=== PATIENT | female | born 1970 | race Caucasian/White ===

== ENCOUNTER 2019-06-19 18:05 | Emergency (ER) | payer OTHER, MEDICAID, SELFPAY ==
[2019-06-19 18:14] VITALS: BP 182/99; PULSE 102; RESP 26; O2SAT 99; BMI 21.7
--- NOTE | 2019-06-19 18:16 | DI.RAD.S_ITS ---
PROCEDURE: XR CHEST 1V INDICATIONS: chest pain TECHNIQUE: One view of the chest was acquired. COMPARISON: [facility], , CHEST 2 VIEW, 03/08/2010, 14:41. FINDINGS: Surgical changes and devices: None. Lungs and pleura: Lungs are clear. No pleural effusions or pneumothorax. Mediastinum: Mediastinal contours appear normal. Heart size is normal. Bones and chest wall: No suspicious bony lesions. Overlying soft tissues appear unremarkable. IMPRESSION: No acute cardiopulmonary hepatology. Dictated by: Jose Onofre M.D. on 06/19/2019 at 18:41 Approved by: Jose Onofre M.D. on 06/19/2019 at 18:42
[2019-06-19 18:34] LABS: Add Manual Diff / Slide Review NO; Basophils Absolute Auto 0 /uL (0-100); Basophils Percent Auto 0.4 % (0-2); Eosinophils Absolute Auto 100 /uL (0-450); Eosinophils Percent Auto 0.8 % (2-4); Hematocrit 38.3 % (36-46); Hemoglobin 12.4 g/dL (12.0-16.0); Lymphocytes Absolute Auto 2500 /uL (1100-4500); Lymphocytes Percent Auto 29.1 % (25-40); Mean Corpuscular HGB Conc 32.5 % (30-36); Mean Corpuscular Hemoglobin 26.3 PG (26-34); Monocytes Absolute Auto 500 /uL (0-900); Monocytes Percent Auto 6.4 % (3-14); Neutrophils Absolute Auto 5400 /uL (1500-7000); Neutrophils Percent Auto 63.3 % (50-75); Platelet Count 362 X10^3/uL (150-400); Red Blood Cell Count 4.72 X10^6/uL (4.0-5.2); Red Cell Distribution Width 14.3 % (11.6-14.8); White Blood Cell Count 8.5 X10^3/uL (4.5-11.0)
[2019-06-19 18:40] LABS: Alanine Aminotransferase 17 IU/L (<35); Albumin 4.7 g/dL (3.5-5.0); Albumin Globulin Ratio 1.5 (1.0-2.8); Alkaline Phosphatase 90 U/L (38-126); Aspartate Aminotransferase 21 IU/L (14-36); BUN Creatinine Ratio 21.7 (6-22); Bilirubin Total 0.3 mg/dL (0.2-1.3); Blood Urea Nitrogen 13 mg/dL (7-17); Calcium 9.9 mg/dL (8.4-10.2); Carbon Dioxide 28 mmol/L (22-32); Chloride 99 mmol/L (98-107); Creatine Kinase 82 U/L (30-135); Estimated Glomerular Filt Rate > 60.0 mL/min (>60); Globulin 3.2 g/dL (1.7-4.1); Glucose 106 mg/dL (70-100); HEMOLYSIS < 15 (0-50); Lipase 123 U/L (23-300); Potassium 3.4 mmol/L (3.4-5.1); Sodium 138 mmol/L (137-145); Total Protein 7.9 g/dL (6.3-8.2)
--- NOTE | 2019-06-19 18:45 | ED.CHESTPAIN ---
HPI - Chest Pain General Chief Complaint: Chest Pain Stated Complaint: CHEST PAIN Time Seen by Provider: 06/19/19 18:13 Source: patient Mode of arrival: Ambulatory Limitations: no limitations History of Present Illness HPI narrative: 48-year-old female here for evaluation of left-sided chest pain radiating down her left arm. States that it started approximately 1 hour prior to arrival here in the ER. Time my evaluation she was symptom-free. She did take an aspirin prior to arrival. She described as a sharp pain. Not worse with palpation or movement or breathing. Has never had anything like this in the past. She states she was anxious at the time. Related Data Home Medications Medication Instructions Recorded Confirmed alprazolam [Xanax] 1 mg PO PRN #0 10/11/11 clonazepam 2 mg PO TID #0 10/11/11 fluticasone propionate [Flovent 1 puff INH BID #12 gm 10/11/11 HFA] sertraline 75 mg PO QDAY #0 10/11/11 PRAZOSIN HYDROCHLORIDE (PRAZOSIN 2 mg PO HS #0 09/18/12 HCL) Previous Rx's Medication Instructions Recorded pantoprazole [Protonix] 40 mg PO QDAY #30 12/10/12 tobramycin-dexamethasone [TobraDex] 1 drp OPHTH Q4HWA #5 ml 03/12/17 lorazepam [Ativan] 1 mg PO BID PRN #10 tab 06/19/19 meloxicam [Mobic] 15 mg PO DAILY #60 tab 06/19/19 pantoprazole [Protonix] 40 mg PO DAILY #60 tab 06/19/19 Allergies Allergy/AdvReac Type Severity Reaction Status Date / Time codeine [CODEINE] Allergy Mild Verified 06/19/19 18:14 hydrocodone [HYDROCODONE] Allergy Mild RASH Verified 06/19/19 18:14 metoclopramide Allergy Mild Verified 06/19/19 18:14 [METOCLOPRAMIDE] morphine [MORPHINE] Allergy Mild Verified 06/19/19 18:14 Review of Systems Constitutional Constitutional: Denies fever(s) Cardiovascular Cardiovascular: Reports chest pain and Denies dyspnea Respiratory Respiratory: Denies dyspnea Gastrointestinal Gastrointestinal: Denies abdominal pain, Denies nausea and Denies vomiting Genitourinary Genitourinary: Denies dysuria and Denies vaginal discharge Musculoskeletal Musculoskeletal: Denies myalgias and Denies arthralgias Integumentary/Breasts Skin/Breast: Denies lesions and Denies rash Neurologic Neurologic: Denies behavioral changes Psychiatric Psychiatric: Reports anxiety and Denies behavioral changes Hematologic/Lymphatic Hematologic/Lymphatic: Denies easy bleeding and Denies easy bruising Patient History Medical History Anxiety (Acute) PTSD (post-traumatic stress disorder) (Acute) SVT (supraventricular tachycardia) (Inactive) Social History Smoking Status: Unknown if ever smoked Smoking Status: Unknown if ever smoked alcohol intake frequency: holidays/special occasions only Substance Use Type: does not use Exam Initial Vital Signs Initial Vital Signs: Vital Signs Pulse Rate 102 H 06/19/19 18:14 Respiratory Rate 26 H 06/19/19 18:14 Blood Pressure 182/99 H 06/19/19 18:14 Pulse Oximetry 99 06/19/19 18:14 Const General: cooperative, comfortable and well developed Orientation: alert, awake and oriented x3 HENMT Head: normal to inspection and normocephalic Resp Effort & Inspection: normal respiratory effort Auscultation: clear to auscultation bilaterally Cardio Rate: tachycardic Rhythm: regular rhythm Pulses: radial pulses present GI Inspection: non-distended Palpation: No firm and No tender Skin Lesions: no lesions Rashes: no rashes Neuro General: alert, awake and oriented x3 Cognition: normal cognition Speech: speech normal Motor: muscle tone normal throughout Sensory Exam: no sensory deficits noted Extrem General: normal to inspection and capillary refill normal Psych Appearance: grossly normal and well kempt Scores GCS Sp coma scale eye opening: Spontaneous Sp coma scale verbal response: [place] coma scale motor response: [place] coma scale total score: 15 HEART Score Heart Score history: Slightly Suspicious Heart Score EKG: Normal Heart Score Age: 45-64 years old Heart Score risk factors: No known risk factors Heart Score troponin: < or = to normal limit Heart Score Total: 1 PERC Score Age greater than or equal to 50 years: Yes Heart rate greater than or equal to 100 bpm: Yes Room Air O2 Sat less than 95%: No Unilateral leg swelling: No Recent trauma or surgery: No Hemoptysis: No Prior PE or DVT: No Hormone Use: No Total PERC Score: 2 Course Orders Ordered: ED Orders 06/19/19 18:12 B Type Natriuretic Peptide Stat Complete Blood Count AUTO DIFF Stat Comprehensive Metabolic Panel Stat D Dimer Stat Lipase Stat Partial Thromboplastin Time Stat Prothrombin Time INR Stat Troponin & CK Cardiac Panel Stat 06/19/19 18:15 EKG-12 Lead Stat 06/19/19 18:16 XR chest 1V Stat 06/19/19 20:30 Troponin I Stat Vital Signs Vital signs: Vital Signs - 8 hr 06/19/19 18:47 06/19/19 19:35 06/19/19 20:09 Pulse Rate 101 H 96 H 107 H Respiratory Rate 19 26 H 33 H Blood Pressure [Left Arm] 143/98 H 121/89 125/84 Pulse Oximetry 98 97 99 06/19/19 21:12 Pulse Rate 89 Respiratory Rate 17 Blood Pressure [Left Arm] 115/71 Pulse Oximetry 96 MDM - Chest Pain Lab Data Attestation: I reviewed the patient's lab results. Result diagrams: 06/19/19 18:12 06/19/19 18:12 Labs: Lab Results 06/19/19 06/19/19 06/19/19 Range/Units 18:12 18:12 18:12 WBC 8.5 (4.5-11.0) X10^3/uL RBC 4.72 (4.0-5.2) X10^6/uL Hgb 12.4 (12.0-16.0) g/dL Hct 38.3 (36-46) % MCV 81.0 (80-100) fL MCH 26.3 (26-34) PG MCHC 32.5 (30-36) % RDW 14.3 (11.6-14.8) % Plt Count 362 (150-400) X10^3/uL Neut % (Auto) 63.3 (50-75) % Lymph % (Auto) 29.1 (25-40) % [place] % (Auto) 6.4 (3-14) % Eos % (Auto) 0.8 L (2-4) % Baso % (Auto) 0.4 (0-2) % Neut # (Auto) 5400 (1893-2054) /uL Lymph # (Auto) 2500 (1437-8600) /uL [place] # (Auto) 500 (0-900) /uL Eos # (Auto) 100 (0-450) /uL Baso # (Auto) 0 (0-100) /uL PT 10.5 (10.1-12.7) SECONDS INR 0.9 (0.9-1.3) APTT 31 (26.4-36.2) SECONDS D-Dimer (<230) ng/mL Sodium 138 (137-145) mmol/L Potassium 3.4 (3.4-5.1) mmol/L Chloride 99 (98-107) mmol/L Carbon Dioxide 28 (22-32) mmol/L BUN 13 (7-17) mg/dL Creatinine 0.60 (0.52-1.04) mg/dL Estimated GFR > 60.0 (>60) mL/min BUN/Creatinine Ratio 21.7 (6-22) Glucose 106 H (70-100) mg/dL Calcium 9.9 (8.4-10.2) mg/dL Total Bilirubin 0.3 (0.2-1.3) mg/dL AST 21 (14-36) IU/L ALT 17 (<35) IU/L Alkaline Phosphatase 90 (38-126) U/L Total Creatine Kinase 82 (30-135) U/L CK-MB (CK-2) TNP CK-MB (CK-2) Rel Index TNP Troponin I < 0.012 (0.01-0.034) ng/mL B-Natriuretic Peptide (<100) Total Protein 7.9 (6.3-8.2) g/dL Albumin 4.7 (3.5-5.0) g/dL Globulin 3.2 (1.7-4.1) g/dL Albumin/Globulin Ratio 1.5 (1.0-2.8) Lipase 123 (23-300) U/L 06/19/19 06/19/19 06/19/19 Range/Units 18:12 18:12 20:30 WBC (4.5-11.0) X10^3/uL RBC (4.0-5.2) X10^6/uL Hgb (12.0-16.0) g/dL Hct (36-46) % MCV (80-100) fL MCH (26-34) PG MCHC (30-36) % RDW (11.6-14.8) % Plt Count (150-400) X10^3/uL Neut % (Auto) (50-75) % Lymph % (Auto) (25-40) % [place] % (Auto) (3-14) % Eos % (Auto) (2-4) % Baso % (Auto) (0-2) % Neut # (Auto) (5881-4535) /uL Lymph # (Auto) (2094-6968) /uL [place] # (Auto) (0-900) /uL Eos # (Auto) (0-450) /uL Baso # (Auto) (0-100) /uL PT (10.1-12.7) SECONDS INR (0.9-1.3) APTT (26.4-36.2) SECONDS D-Dimer 143 (<230) ng/mL Sodium (137-145) mmol/L Potassium (3.4-5.1) mmol/L Chloride (98-107) mmol/L Carbon Dioxide (22-32) mmol/L BUN (7-17) mg/dL Creatinine (0.52-1.04) mg/dL Estimated GFR (>60) mL/min BUN/Creatinine Ratio (6-22) Glucose (70-100) mg/dL Calcium (8.4-10.2) mg/dL Total Bilirubin (0.2-1.3) mg/dL AST (14-36) IU/L ALT (<35) IU/L Alkaline Phosphatase (38-126) U/L Total Creatine Kinase (30-135) U/L CK-MB (CK-2) CK-MB (CK-2) Rel Index Troponin I < 0.012 (0.01-0.034) ng/mL B-Natriuretic Peptide < 100 (<100) Total Protein (6.3-8.2) g/dL Albumin (3.5-5.0) g/dL Globulin (1.7-4.1) g/dL Albumin/Globulin Ratio (1.0-2.8) Lipase (23-300) U/L Imaging Data Chest x-ray: Radiologist's impression: [address] [address] XRay Report Signed Patient: Moni Payne [facility]#: [id number] : 1970Acct:[id number] Age/Sex: 48 / FDate of Service: 06/19/19 Loc: ED Accession Number: [id number] Procedure: XR chest 1V Ordering Provider: Olayinka Alvarez D.O. PROCEDURE: XR CHEST 1V INDICATIONS: chest pain TECHNIQUE: One view of the chest was acquired. COMPARISON: [facility], CHEST 2 VIEW, 03/08/2010, 14:41. FINDINGS: Surgical changes and devices: None. Lungs and pleura: Lungs are clear. No pleural effusions or pneumothorax. Mediastinum: Mediastinal contours appear normal. Heart size is normal. Bones and chest wall: No suspicious bony lesions. Overlying soft tissues appear unremarkable. IMPRESSION: No acute cardiopulmonary hepatology. Dictated by: Jose Onofre M.D. on 06/19/2019 at 18:41 Approved by: Jose Onofre M.D. on 06/19/2019 at 18:42 ECG Data Attestation: I personally reviewed and interpreted this ECG as follows: Prior ECG tracings: not available for review Interpretation: Sinus rhythm Normal axis Normal QRS Normal QTC No ST T wave changes MDM Narrative Medical decision making narrative: Positive PERC but D-dimer is negative. EKG is unremarkable. Low risk heart score. Troponin is negative x2. Chest x-ray shows no signs of pneumonia. I do have a very strong suspicion that her symptoms were related to anxiety. She does states she was anxious at the time. She has a prior history of anxiety. She states she is not on any anxiety medication. Will hold on further workup for now. Will refill some of her medications however she was told that the rest for medications need to come from her primary provider. We did discuss return precautions and follow-up instructions. She expressed understanding and agreement plan. Discharge Plan Departure Patient Disposition: Home Clinical Impression: Atypical chest pain Discharge Date/Time: 06/19/19 21:33 Instructions: DI for Atypical Chest Pain Activity Restrictions/Additional Instructions: I recommend that you contact the health human resource officer here at the hospital at [phone] to help you establish a primary provider. Take the medications as directed. Return to the emergency department for any new or worsening symptoms Prescriptions: New meloxicam [Mobic] 15 mg tablet 15 mg PO DAILY Qty: 60 RF: 0 pantoprazole [Protonix] 40 mg tablet,delayed release (DR/EC) 40 mg PO DAILY Qty: 60 RF: 0 lorazepam [Ativan] 1 mg tablet 1 mg PO BID PRN (Reason: anxiety) Qty: 10 RF: 0 No Action alprazolam [Xanax] 1 MG tablet 1 mg PO PRN Qty: 0 RF: 0 sertraline 50 MG tablet 75 mg PO QDAY Qty: 0 RF: 0 fluticasone propionate [Flovent HFA] 12 GM HFA aerosol inhaler 1 puff INH BID Qty: 12 RF: 0 clonazepam 2 MG tablet 2 mg PO TID Qty: 0 RF: 0 PRAZOSIN HYDROCHLORIDE (PRAZOSIN HCL) 2 mg PO HS Qty: 0 RF: 0 pantoprazole [Protonix] 40 MG tablet,delayed release (DR/EC) 40 mg PO QDAY Qty: 30 RF: 11 tobramycin-dexamethasone [TobraDex] 5 ML drops,suspension 1 drp OPHTH Q4HWA Qty: 5 RF: 0
[2019-06-19 18:47] VITALS: BP 143/98; PULSE 101; RESP 19; O2SAT 98
[2019-06-19 18:51] LABS: Troponin I < 0.012 ng/mL (0.01-0.034)
[2019-06-19 18:56] LABS: INR 0.9 (0.9-1.3); PTT Partial Thromboplastin Tim 31 SECONDS (26.4-36.2); Prothrombin Time 10.5 SECONDS (10.1-12.7)
[2019-06-19 18:57] LABS: D Dimer 143 ng/mL (<230)
[2019-06-19 19:07] LABS: B Type Natriuretic Peptide < 100 (<100)
[2019-06-19 19:35] VITALS: BP 121/89; PULSE 96; RESP 26; O2SAT 97
[2019-06-19 20:09] VITALS: BP 125/84; PULSE 107; RESP 33; O2SAT 99
[2019-06-19 20:57] LABS: Troponin I < 0.012 ng/mL (0.01-0.034)
[2019-06-19 21:12] VITALS: BP 115/71; PULSE 89; RESP 17; O2SAT 96
== END 2019-06-19 21:33 | disposition home or self-care (01) ==
PROVIDERS: Emergency Provider Emergency Medicine
DX: R07.89 Other chest pain (principal)
CPT/HCPCS: 36415; 71045; 80053; 82550; 83690; 83880; 84484; 85025; 85379; 85610; 85730; 93005; 93010; 99284; 99285

== ENCOUNTER 2019-08-04 18:01 | Emergency (ER) | payer OTHER, MEDICAID, SELFPAY ==
[2019-08-04 18:03] VITALS: BP 180/105; PULSE 91; RESP 18; TEMP 36.9; O2SAT 100; BMI 23.1
[2019-08-04 18:13] VITALS: BP 158/107
--- NOTE | 2019-08-04 18:47 | ED.HA ---
HPI - Headache General Chief Complaint: Headache Stated Complaint: headache, neck pain, vomiting Time Seen by Provider: 08/04/19 18:39 Source: patient Mode of arrival: Ambulatory Limitations: no limitations History of Present Illness HPI Narrative: Patient is a 48-year-old female with a history of epilepsy also with cervical degenerative disc disease here for evaluation of right-sided posterior neck pain and is causing her headache. No fevers. No trauma. She states she is feeling ?clicking? in her neck. She does have a primary provider however does not have an appointment until next month. Here for symptom control Related Data Previous Rx's Medication Instructions Recorded ondansetron 4 mg disintegrating 4 mg PO BID PRN #14 tab 07/15/19 tablet cyclobenzaprine 10 mg PO TID PRN #14 tab 08/04/19 lidocaine 1 patch TOP DAILY #1 each 08/04/19 Allergies Allergy/AdvReac Type Severity Reaction Status Date / Time codeine [CODEINE] Allergy Mild Verified 08/04/19 18:10 hydrocodone [HYDROCODONE] Allergy Mild RASH Verified 08/04/19 18:10 metoclopramide Allergy Mild Verified 08/04/19 18:10 [METOCLOPRAMIDE] morphine [MORPHINE] Allergy Mild Verified 08/04/19 18:10 Review of Systems Constitutional Constitutional: Denies fever(s), Reports headache(s) and Denies weakness ENT Ears, Nose, Mouth, and Throat: Denies vertigo, Denies dizziness, Reports headache(s), Reports neck pain and Denies disequilibrium Cardiovascular Cardiovascular: Denies chest pain and Denies dyspnea Respiratory Respiratory: Denies dyspnea Gastrointestinal Gastrointestinal: Denies abdominal pain Musculoskeletal Musculoskeletal: Reports neck pain Integumentary/Breasts Skin/Breast: Denies lesions and Denies rash Neurologic Neurologic: Denies behavioral changes, Denies confusion, Denies vertigo, Denies dizziness, Reports headache(s), Denies tremor(s), Denies disequilibrium and Denies weakness Psychiatric Psychiatric: Denies behavioral changes and Denies confusion Hematologic/Lymphatic Hematologic/Lymphatic: Denies easy bleeding and Denies easy bruising Patient History Medical History Anxiety (Acute) PTSD (post-traumatic stress disorder) (Acute) SVT (supraventricular tachycardia) (Inactive) Social History Smoking Status: Never smoker Smoking Status: Never smoker alcohol intake frequency: holidays/special occasions only Substance Use Type: does not use Exam Initial Vital Signs Initial Vital Signs: Vital Signs Temperature 98.5 F 08/04/19 18:03 Pulse Rate 91 H 08/04/19 18:03 Respiratory Rate 18 08/04/19 18:03 Blood Pressure 180/105 H 08/04/19 18:03 Pulse Oximetry 100 08/04/19 18:03 Const General: cooperative, comfortable and well developed Limitations: mental status not altered HENMT Head: normal to inspection and normocephalic Back/Spine/Pelvis Cervical Spine: cervical spasm, No cervical spinal tenderness and No step off deformity Skin Lesions: no lesions Rashes: no rashes Neuro General: alert, awake and oriented x3 Cranial Nerves: CN's II-XI intact bilaterally Cognition: normal cognition Speech: speech normal Gait: normal gait Extrem General: normal to inspection and capillary refill normal Course Orders Ordered: Discontinued Medications Lidocaine HCl (Xylocaine 1% (Pf)) 2 ml INJ NOW ONE Stop: 08/04/19 18:48 Last Admin: 08/04/19 19:58 Dose: 2 ml Documented by: MUMTAZ Ondansetron HCl (Zofran Odt) 4 mg PO NOW ONE Stop: 08/04/19 19:52 Last Admin: 08/04/19 19:57 Dose: 4 mg Documented by: MUMTAZ Vital Signs Vital signs: Vital Signs - 8 hr 08/04/19 18:03 08/04/19 18:13 08/04/19 20:00 Temperature 98.5 F Pulse Rate 91 H 90 Respiratory Rate 18 16 Blood Pressure 180/105 H Blood Pressure [Left Arm] 158/107 H Pulse Oximetry 100 98 MDM - Headache MDM Narrative Medical decision making narrative: Do suspect this is muscle spasm. She does have pinpoint tenderness the right paraspinal region. A trigger point injection was done with 2 mL of 1% lidocaine without epinephrine. Also sent home with symptom control. Feel we can hold on head CT. Low suspicion for meningitis. Low suspicion for subarachnoid hemorrhage. Patient was given return precautions and follow-up instructions. She expressed understanding agreement plan. Discharge Plan Departure Patient Disposition: Home Clinical Impression: Cervical muscle pain Discharge Date/Time: 08/04/19 20:05 Instructions: DI for Cervical Muscle Strain Activity Restrictions/Additional Instructions: Take the medications as directed. Unfortunately tramadol/Ultram should not be given in individuals with a history of epilepsy. This does limit however options as far as pain control given your allergies. I do recommend you may contact with your primary provider. Return to the emergency department for any new or worsening symptoms. Your prescriptions were electronically transmitted to the [facility] here in [place]. Prescriptions: New lidocaine 5 % adhesive patch,medicated 1 patch TOP DAILY Qty: 1 RF: 0 cyclobenzaprine 10 mg tablet 10 mg PO TID PRN (Reason: muscle spasm) Qty: 14 RF: 0 No Action ondansetron 4 mg tablet,disintegrating 4 mg PO BID PRN (Reason: nausea and vomiting) Qty: 14 RF: 0
[2019-08-04] MEDS: ONDANSETRON 4 MG ODT PO (19:57)
[2019-08-04] MEDS: LIDOCAINE 1% (PF) 2 ML INJ (19:58)
[2019-08-04 20:00] VITALS: PULSE 90; RESP 16; O2SAT 98
== END 2019-08-04 20:05 | disposition home or self-care (01) ==
PROVIDERS: Emergency Provider Emergency Medicine
DX: M54.2 Cervicalgia (principal)
CPT/HCPCS: 99283

== ENCOUNTER 2019-08-05 04:15 | Emergency (ER) | payer OTHER, MEDICAID, SELFPAY ==
[2019-08-05 04:15] VITALS: BP 138/94; PULSE 89; RESP 17; O2SAT 100; BMI 23.1
--- NOTE | 2019-08-05 04:44 | ED.ARRPALP ---
HPI - Arrhythmia/Palpitations General Chief Complaint: Arrhythmia/Palpitations Stated Complaint: heart started going fast chest pain Time Seen by Provider: 08/05/19 04:44 Source: patient Mode of arrival: Wheelchair Limitations: no limitations History of Present Illness HPI narrative: The patient awoke about 2:30 a.m. to go the bathroom. When she awoke she developed palpitations and dyspnea. She has been previously seen here, she was taught to do Valsalva maneuvers. She is still feeling anxious upon arrival, the palpitations have improved. The palpitations lasted about 1 hour prior to resolution. The dyspnea is improved. She is nauseated. She is having no chest pain. She does have a sliding hiatal hernia, that pain is very intense and quite different. She has nausea but no pain consistent with her hiatal hernia at this time. She was seen yesterday and underwent a injection to the neck for DJD. She was nauseated yesterday, requiring Zofran. She has no headache or neck pain at this time. She is still complaining of nausea upon arrival. She denies recent illness. She has been seeing a previously, she has been treated for PSVT. She has had no symptoms in over 2 years. She is on no medications regarding her heart her heart rhythm. Related Data Previous Rx's Medication Instructions Recorded ondansetron 4 mg disintegrating 4 mg PO BID PRN #14 tab 07/15/19 tablet cyclobenzaprine 10 mg PO TID PRN #14 tab 08/04/19 lidocaine 1 patch TOP DAILY #1 each 08/04/19 Allergies Allergy/AdvReac Type Severity Reaction Status Date / Time codeine [CODEINE] Allergy Mild Verified 08/04/19 18:10 hydrocodone [HYDROCODONE] Allergy Mild RASH Verified 08/04/19 18:10 metoclopramide Allergy Mild Verified 08/04/19 18:10 [METOCLOPRAMIDE] morphine [MORPHINE] Allergy Mild Verified 08/04/19 18:10 Review of Systems Review of Systems ROS Unobtainable: All systems reviewed & are unremarkable except as noted in HPI and below Constitutional Constitutional: Denies chills, Denies fever(s), Denies lethargy and Denies weakness Eyes Eyes: Denies change in vision and Denies loss of vision ENT Ears, Nose, Mouth, and Throat: Denies dizziness, Denies nasal trauma, Denies neck pain and Denies disequilibrium Cardiovascular Cardiovascular: Denies chest pain, Denies lightheadedness, Reports palpitations, Reports dyspnea, Denies dyspnea on exertion and Reports orthopnea Respiratory Respiratory: Denies cough, Reports dyspnea, Denies dyspnea on exertion and Denies wheezing Gastrointestinal Gastrointestinal: Denies abdominal pain, Denies change in bowel habits, Denies diarrhea, Reports nausea and Denies vomiting Musculoskeletal Musculoskeletal: Denies back pain and Denies neck pain Integumentary/Breasts Skin/Breast: Denies rash and Denies wounds Neurologic Neurologic: Denies confusion, Denies dizziness, Denies loss of vision, Denies disequilibrium and Denies weakness Psychiatric Psychiatric: Reports anxiety, Denies confusion and Denies irritability Endocrine Endocrine: Reports palpitations Allergic/Immunologic Allergic/Immunologic: Denies wheezing Patient History Medical History (Updated 08/05/19 @ 06:52 by Tree Mckeon MD) Anxiety (Acute) PTSD (post-traumatic stress disorder) (Acute) SVT (supraventricular tachycardia) (Inactive) Surgical History (Updated 08/05/19 @ 05:13 by Tree Mckeon MD) No significant past surgical history (Acute) Social History Smoking Status: Never smoker Smoking Status: Never smoker alcohol intake frequency: holidays/special occasions only Substance Use Type: does not use Exam Initial Vital Signs Initial Vital Signs: Vital Signs Pulse Rate 89 08/05/19 04:15 Respiratory Rate 17 08/05/19 04:15 Blood Pressure 138/94 H 08/05/19 04:15 Pulse Oximetry 100 08/05/19 04:15 Const General: cooperative, well developed and anxious Nutritional Appearance: well nourished [facility] Face and sinus: normal facial exam Mouth: oral mucosae normal and lip normal Throat: posterior oropharynx normal Eyes General: appearance normal, both eyes and all related structures Eyelids: eyelids normal Conjunctivae: conjunctivae normal Sclera: sclerae normal Pupils: PERRL EOM: EOM intact bilaterally Neck Neck: supple and No JVD Thyroid: thyroid normal Resp Effort & Inspection: normal respiratory effort and able to speak in complete sentences Auscultation: clear to auscultation bilaterally, no rales, no rhonchi and no wheezes Cardio Rate: regular rate Rhythm: regular rhythm Heart Sounds: S1 normal, S2 normal, no click, no gallops, no murmurs and no rubs Pulses: normal peripheral pulses GI Inspection: non-distended Palpation: soft, no hepatosplenomegaly, No guarding, No pulsatile mass and No tender Auscultation: normal bowel sounds and normoactive bowel sounds Skin General: no rashes or lesions noted, No mottling and No petechiae Neuro General: alert, oriented x3, gait normal and no focal motor deficits Speech: speech normal Extrem General: full ROM, no pedal edema and no calf tenderness Psych Appearance: well kempt Mental Status: mental status grossly normal Attitude: cooperative Thought Content: normal and suicidality Judgment: judgment good Course Course Course Narrative: The patient was anxious upon arrival due to the recent event. However, she is being seen here multiple times previously with PSVT. Her presentation tonight is consistent with PSVT that she resolved by Valsalva prior to coming here. There is no evidence of significant cardiac issues at this time. She is advised follow-up her doctor if symptoms persist, she may benefit from a cardiology evaluation. Orders Ordered: ED Orders 08/05/19 EKG-12 Lead Stat 08/05/19 05:05 XR chest 1V Stat 08/05/19 05:15 Complete Blood Count AUTO DIFF Stat Comprehensive Metabolic Panel Stat Lipase Stat Partial Thromboplastin Time Stat Prothrombin Time INR Stat Troponin & CK Cardiac Panel Stat Discontinued Medications Ondansetron HCl (Zofran Odt) 4 mg SL NOW ONE Stop: 08/05/19 05:07 Last Admin: 08/05/19 05:11 Dose: 4 mg Documented by: BOYD Vital Signs Vital signs: Vital Signs - 8 hr 08/05/19 04:15 08/05/19 05:30 08/05/19 06:30 Pulse Rate 89 91 H 73 Respiratory Rate 17 18 18 Blood Pressure 138/94 H Blood Pressure [Right Arm] 138/87 119/77 Pulse Oximetry 100 93 100 MDM - Arrhythmia/Palpitations Lab Data Result diagrams: 08/05/19 05:15 08/05/19 05:15 Labs: Lab Results 08/05/19 08/05/19 08/05/19 Range/Units 05:15 05:15 05:15 WBC 4.6 (4.5-11.0) X10^3/uL RBC 4.58 (4.0-5.2) X10^6/uL Hgb 11.7 L (12.0-16.0) g/dL Hct 36.7 (36-46) % MCV 80.1 (80-100) fL MCH 25.5 L (26-34) PG MCHC 31.9 (30-36) % RDW 14.9 H (11.6-14.8) % Plt Count 261 (150-400) X10^3/uL Neut % (Auto) 53.5 (50-75) % Lymph % (Auto) 35.5 (25-40) % [place] % (Auto) 7.9 (3-14) % Eos % (Auto) 2.1 (2-4) % Baso % (Auto) 1.0 (0-2) % Neut # (Auto) 2500 (4175-5623) /uL Lymph # (Auto) 1700 (8567-5767) /uL [place] # (Auto) 400 (0-900) /uL Eos # (Auto) 100 (0-450) /uL Baso # (Auto) 0 (0-100) /uL PT 10.8 (10.1-12.7) SECONDS INR 0.9 (0.9-1.3) APTT 31 (26.4-36.2) SECONDS Sodium 136 L (137-145) mmol/L Potassium 4.3 (3.4-5.1) mmol/L Chloride 101 (98-107) mmol/L Carbon Dioxide 30 (22-32) mmol/L BUN 23 H (7-17) mg/dL Creatinine 0.80 (0.52-1.04) mg/dL Estimated GFR > 60.0 (>60) mL/min BUN/Creatinine Ratio 28.8 H (6-22) Glucose 96 (70-100) mg/dL Calcium 9.3 (8.4-10.2) mg/dL Total Bilirubin 0.2 (0.2-1.3) mg/dL AST 48 H (14-36) IU/L ALT 39 H (<35) IU/L Alkaline Phosphatase 78 (38-126) U/L Total Creatine Kinase 67 (30-135) U/L CK-MB (CK-2) TNP CK-MB (CK-2) Rel Index TNP Troponin I < 0.012 (0.01-0.034) ng/mL Total Protein 7.1 (6.3-8.2) g/dL Albumin 4.0 (3.5-5.0) g/dL Globulin 3.1 (1.7-4.1) g/dL Albumin/Globulin Ratio 1.3 (1.0-2.8) Lipase 84 (23-300) U/L Imaging Data Chest x-ray: My Impression: Normal ECG Data Attestation: I personally reviewed and interpreted this ECG as follows: (Normal sinus rhythm rate 81 beats per minute. Normal intervals. No ectopy. No acute ST T wave changes. Normal study.) Discharge Plan Departure Patient Disposition: Home Clinical Impression: Palpitations Instructions: DI for Paroxysmal Supraventricular Tachycardia Activity Restrictions/Additional Instructions: The situation tonight is likely PSVT, the rhythm with seen here previously there required treatment. You have not had this problem for 3 years. If you developed a situation where you have this issue frequent, follow-up with her doctor. He may benefit from is in a admission nurse coordinator. Of course, return to the ER as necessary with rapid heart rate. Prescriptions: No Action ondansetron 4 mg tablet,disintegrating 4 mg PO BID PRN (Reason: nausea and vomiting) Qty: 14 RF: 0 lidocaine 5 % adhesive patch,medicated 1 patch TOP DAILY Qty: 1 RF: 0 cyclobenzaprine 10 mg tablet 10 mg PO TID PRN (Reason: muscle spasm) Qty: 14 RF: 0
--- NOTE | 2019-08-05 05:05 | DI.RAD.S_ITS ---
PROCEDURE: XR CHEST 1V INDICATIONS: chest pain TECHNIQUE: One view of the chest was acquired. COMPARISON: [facility], , XR CHEST 1V, 06/19/2019, 18:26. [facility], , CHEST 2 VIEW, 03/08/2010, 14:41. FINDINGS: Surgical changes and devices: None. Lungs and pleura: Lungs are clear. No pleural effusions or pneumothorax. Mediastinum: Mediastinal contours appear normal. Heart size is normal. Bones and chest wall: No suspicious bony lesions. Overlying soft tissues appear unremarkable. IMPRESSION: Normal for age, source of current chest pain symptoms is not seen. Dictated by: Last Ackerman M.D. on 08/05/2019 at 8:15 Approved by: Last Ackerman M.D. on 08/05/2019 at 8:16
[2019-08-05] MEDS: ONDANSETRON 4 MG ODT SL (05:11)
[2019-08-05 05:30] VITALS: BP 138/87; PULSE 91; RESP 18; O2SAT 93
[2019-08-05 05:30] LABS: INR 0.9 (0.9-1.3); Prothrombin Time 10.8 SECONDS (10.1-12.7)
[2019-08-05 05:32] LABS: Add Manual Diff / Slide Review NO; Basophils Absolute Auto 0 /uL (0-100); Eosinophils Absolute Auto 100 /uL (0-450); Eosinophils Percent Auto 2.1 % (2-4); Hematocrit 36.7 % (36-46); Hemoglobin 11.7 g/dL (12.0-16.0); Lymphocytes Absolute Auto 1700 /uL (1100-4500); Lymphocytes Percent Auto 35.5 % (25-40); Mean Corpuscular HGB Conc 31.9 % (30-36); Mean Corpuscular Hemoglobin 25.5 PG (26-34); Mean Corpuscular Volume 80.1 fL (80-100); Monocytes Absolute Auto 400 /uL (0-900); Monocytes Percent Auto 7.9 % (3-14); Neutrophils Absolute Auto 2500 /uL (1500-7000); Neutrophils Percent Auto 53.5 % (50-75); Platelet Count 261 X10^3/uL (150-400); Red Blood Cell Count 4.58 X10^6/uL (4.0-5.2); Red Cell Distribution Width 14.9 % (11.6-14.8); White Blood Cell Count 4.6 X10^3/uL (4.5-11.0)
[2019-08-05 05:33] LABS: Alanine Aminotransferase 39 IU/L (<35); Albumin Globulin Ratio 1.3 (1.0-2.8); Alkaline Phosphatase 78 U/L (38-126); Aspartate Aminotransferase 48 IU/L (14-36); BUN Creatinine Ratio 28.8 (6-22); Bilirubin Total 0.2 mg/dL (0.2-1.3); Blood Urea Nitrogen 23 mg/dL (7-17); Calcium 9.3 mg/dL (8.4-10.2); Carbon Dioxide 30 mmol/L (22-32); Chloride 101 mmol/L (98-107); Creatine Kinase 67 U/L (30-135); Estimated Glomerular Filt Rate > 60.0 mL/min (>60); Globulin 3.1 g/dL (1.7-4.1); Glucose 96 mg/dL (70-100); HEMOLYSIS < 15 (0-50); Lipase 84 U/L (23-300); PTT Partial Thromboplastin Tim 31 SECONDS (26.4-36.2); Potassium 4.3 mmol/L (3.4-5.1); Sodium 136 mmol/L (137-145); Total Protein 7.1 g/dL (6.3-8.2)
[2019-08-05 05:45] LABS: Troponin I < 0.012 ng/mL (0.01-0.034)
[2019-08-05 06:30] VITALS: BP 119/77; PULSE 73; RESP 18; O2SAT 100
== END 2019-08-05 07:15 | disposition home or self-care (01) ==
PROVIDERS: Emergency Provider Emergency Medicine
DX: R00.2 Palpitations (principal); I47.1 Supraventricular tachycardia
CPT/HCPCS: 36415; 71045; 80053; 82550; 83690; 84484; 85025; 85610; 85730; 93005; 99284; 99285

== ENCOUNTER 2019-08-13 16:11 | Emergency (ER) | payer OTHER, MEDICAID, SELFPAY ==
[2019-08-13 16:15] VITALS: BP 175/101; PULSE 110; RESP 18; TEMP 36.8; O2SAT 100; BMI 23.1
--- NOTE | 2019-08-13 16:54 | ED.ARRPALP ---
HPI - Arrhythmia/Palpitations General Chief Complaint: Arrhythmia/Palpitations Stated Complaint: heart palpitations, cough Time Seen by Provider: 08/13/19 16:43 Source: patient Mode of arrival: Ambulatory Limitations: no limitations History of Present Illness HPI narrative: Patient is a 48-year-old female here for evaluation of palpitations. She stated that since I evaluated her here in the emergency department several weeks ago for a headache she has had episodes of a fast heart rate. Has been seen in the emergency department since that time. Was told that she need to follow-up with her primary provider. Her symptoms have continued. They have happened at night. It wakes her from sleep. They also occur when she stands up. Returns today because the symptoms have continued Related Data Previous Rx's Medication Instructions Recorded ondansetron 4 mg disintegrating 4 mg PO BID PRN #14 tab 07/15/19 tablet cyclobenzaprine 10 mg PO TID PRN #14 tab 08/04/19 lidocaine 1 patch TOP DAILY #1 each 08/04/19 beclomethasone dipropionate [Qvar 1 inhalation INHALATION Q12H #10.6 08/13/19 RediHaler] gram propranolol 10 mg PO BID #60 tab 08/13/19 Allergies Allergy/AdvReac Type Severity Reaction Status Date / Time codeine [CODEINE] Allergy Mild Verified 08/04/19 18:10 hydrocodone [HYDROCODONE] Allergy Mild RASH Verified 08/04/19 18:10 metoclopramide Allergy Mild Verified 08/04/19 18:10 [METOCLOPRAMIDE] morphine [MORPHINE] Allergy Mild Verified 08/04/19 18:10 Review of Systems Constitutional Constitutional: Denies fever(s) Cardiovascular Cardiovascular: Denies chest pain, Denies edema, Reports palpitations and Denies dyspnea Respiratory Respiratory: Denies dyspnea Gastrointestinal Gastrointestinal: Denies abdominal pain, Denies nausea and Denies vomiting Musculoskeletal Musculoskeletal: Denies myalgias, Denies arthralgias and Denies tingling Integumentary/Breasts Skin/Breast: Denies lesions and Denies rash Neurologic Neurologic: Denies tingling and Denies paresthesias Endocrine Endocrine: Reports palpitations Hematologic/Lymphatic Hematologic/Lymphatic: Denies easy bleeding and Denies easy bruising Patient History Medical History Anxiety (Acute) PTSD (post-traumatic stress disorder) (Acute) SVT (supraventricular tachycardia) (Inactive) Surgical History (Updated 08/05/19 @ 05:13 by Tree Mckeon MD) No significant past surgical history (Acute) Social History Smoking Status: Never smoker Smoking Status: Never smoker alcohol intake frequency: holidays/special occasions only Substance Use Type: does not use Exam Initial Vital Signs Initial Vital Signs: Vital Signs Temperature 98.2 F 08/13/19 16:15 Pulse Rate 110 H 08/13/19 16:15 Respiratory Rate 18 08/13/19 16:15 Blood Pressure 175/101 H 08/13/19 16:15 Pulse Oximetry 100 08/13/19 16:15 Const General: cooperative and comfortable Limitations: mental status not altered Resp Effort & Inspection: normal respiratory effort Auscultation: clear to auscultation bilaterally Cardio Rate: tachycardic Rhythm: regular rhythm Pulses: radial pulses present GI Inspection: non-distended Palpation: soft, No firm and No tender Skin Lesions: no lesions Rashes: no rashes Neuro General: alert, awake and oriented x3 Cognition: normal cognition Speech: speech normal Extrem General: normal to inspection and capillary refill normal Psych Appearance: grossly normal and well kempt Course Orders Ordered: ED Orders 08/13/19 16:40 Basic Metabolic Panel Stat Complete Blood Count AUTO DIFF Stat Magnesium Stat Phosphorous Stat Vital Signs Vital signs: Vital Signs - 8 hr 08/13/19 16:15 Temperature 98.2 F Pulse Rate 110 H Respiratory Rate 18 Blood Pressure 175/101 H Pulse Oximetry 100 MDM - Arrhythmia/Palpitations Lab Data Attestation: I reviewed the patient's lab results. Result diagrams: 08/13/19 16:40 08/13/19 16:40 Labs: Lab Results 08/13/19 08/13/19 Range/Units 16:40 16:40 WBC 6.3 (4.5-11.0) X10^3/uL RBC 4.66 (4.0-5.2) X10^6/uL Hgb 11.9 L (12.0-16.0) g/dL Hct 37.1 (36-46) % MCV 79.6 L (80-100) fL MCH 25.5 L (26-34) PG MCHC 32.1 (30-36) % RDW 15.4 H (11.6-14.8) % Plt Count 268 (150-400) X10^3/uL Neut % (Auto) 61.8 (50-75) % Lymph % (Auto) 27.7 (25-40) % [place] % (Auto) 7.6 (3-14) % Eos % (Auto) 2.2 (2-4) % Baso % (Auto) 0.7 (0-2) % Neut # (Auto) 3900 (2793-5339) /uL Lymph # (Auto) 1700 (3054-7216) /uL [place] # (Auto) 500 (0-900) /uL Eos # (Auto) 100 (0-450) /uL Baso # (Auto) 0 (0-100) /uL Sodium 140 (137-145) mmol/L Potassium 3.7 (3.4-5.1) mmol/L Chloride 101 (98-107) mmol/L Carbon Dioxide 30 (22-32) mmol/L BUN 18 H (7-17) mg/dL Creatinine 0.60 (0.52-1.04) mg/dL Estimated GFR > 60.0 (>60) mL/min BUN/Creatinine Ratio 30.0 H (6-22) Glucose 92 (70-100) mg/dL Calcium 9.7 (8.4-10.2) mg/dL Phosphorus 4.8 H (2.5-4.5) mg/dL Magnesium 1.8 (1.6-2.3) mg/dL ECG Data Attestation: I personally reviewed and interpreted this ECG as follows: Prior ECG tracings: not available for review Interpretation: Sinus rhythm Ventricular rate of 97 Normal axis Normal QRS Normal QTC No ST T wave changes MDM Narrative Medical decision making narrative: Patient's lungs are clear. She was somewhat tachycardic and somewhat hypertensive however was a sinus tachycardia. She does have a history of asthma. She states she has been on a steroid inhaler in the past but does not know the name of it. She does have a follow-up with her primary doctor beginning of next month. Her lecture lytes were unremarkable. We did discuss the importance of needing a Holter monitor. Patient is very concerned about her symptoms. I feel that is okay to start her on a very low-dose of propanolol. We did discuss cautions with regard to this and return precautions. She did state that QVAR sounded familiar has to the medication that she has been on in the past. Will provide a prescription for both of these. Patient was given return precautions and follow-up instructions. She expressed understanding and agreement plan. Discharge Plan Departure Patient Disposition: Home Clinical Impression: Sinus tachycardia Hypertension Qualifiers: Hypertension type: unspecified Qualified Code(s): I10 - Essential (primary) hypertension Instructions: Arrhythmias Activity Restrictions/Additional Instructions: I do recommend that you talk with your primary provider about potentially ordering the Holter monitor prior to your visit. Take the medications as directed. Return to the emergency department for any new or worsening symptoms Prescriptions: New Qvar RediHaler 40 mcg/actuation HFA aerosol breath activated 1 inhalation INHALATION Q12H Qty: 10.6 RF: 0 propranolol 10 mg tablet 10 mg PO BID Qty: 60 RF: 0 No Action ondansetron 4 mg tablet,disintegrating 4 mg PO BID PRN (Reason: nausea and vomiting) Qty: 14 RF: 0 lidocaine 5 % adhesive patch,medicated 1 patch TOP DAILY Qty: 1 RF: 0 cyclobenzaprine 10 mg tablet 10 mg PO TID PRN (Reason: muscle spasm) Qty: 14 RF: 0
[2019-08-13 17:03] LABS: Add Manual Diff / Slide Review NO; Basophils Absolute Auto 0 /uL (0-100); Basophils Percent Auto 0.7 % (0-2); Eosinophils Absolute Auto 100 /uL (0-450); Eosinophils Percent Auto 2.2 % (2-4); Hematocrit 37.1 % (36-46); Hemoglobin 11.9 g/dL (12.0-16.0); Lymphocytes Absolute Auto 1700 /uL (1100-4500); Lymphocytes Percent Auto 27.7 % (25-40); Mean Corpuscular HGB Conc 32.1 % (30-36); Mean Corpuscular Hemoglobin 25.5 PG (26-34); Mean Corpuscular Volume 79.6 fL (80-100); Monocytes Absolute Auto 500 /uL (0-900); Monocytes Percent Auto 7.6 % (3-14); Neutrophils Absolute Auto 3900 /uL (1500-7000); Neutrophils Percent Auto 61.8 % (50-75); Platelet Count 268 X10^3/uL (150-400); Red Blood Cell Count 4.66 X10^6/uL (4.0-5.2); Red Cell Distribution Width 15.4 % (11.6-14.8); White Blood Cell Count 6.3 X10^3/uL (4.5-11.0)
[2019-08-13 17:09] LABS: Blood Urea Nitrogen 18 mg/dL (7-17); Calcium 9.7 mg/dL (8.4-10.2); Carbon Dioxide 30 mmol/L (22-32); Chloride 101 mmol/L (98-107); Estimated Glomerular Filt Rate > 60.0 mL/min (>60); Glucose 92 mg/dL (70-100); HEMOLYSIS 17 (0-50); Magnesium 1.8 mg/dL (1.6-2.3); Phosphorous 4.8 mg/dL (2.5-4.5); Potassium 3.7 mmol/L (3.4-5.1); Sodium 140 mmol/L (137-145)
[2019-08-13 18:28] VITALS: BP 175/101; PULSE 96; RESP 18; O2SAT 96
== END 2019-08-13 18:29 | disposition home or self-care (01) ==
PROVIDERS: Emergency Provider Emergency Medicine
DX: I10 Essential (primary) hypertension (principal); R00.0 Tachycardia, unspecified
CPT/HCPCS: 36415; 80048; 83735; 84100; 85025; 93005; 99284

== ENCOUNTER → 2019-10-16 14:12 | Outpatient (CLI) | payer OTHER, MEDICAID, SELFPAY ==
[2019-10-17 02:09] LABS: COVID19 Sendout Not Detected (Not Detect)
== END ==
PROVIDERS: Visit Provider Registered Nurse
DX: Z01.812 Encounter for preprocedural laboratory examination (principal)
CPT/HCPCS: 87635

== ENCOUNTER 2021-01-20 16:57 | Emergency (ER) | payer OTHER, SELFPAY ==
[2021-01-20 17:42] VITALS: BP 143/107; PULSE 89; RESP 15; TEMP 36.4; O2SAT 100; BMI 24.2
[2021-01-20 17:56] LABS: Bacteria Urine None Seen
[2021-01-20 17:59] LABS: Appearance Urine UA CLOUDY; Bilirubin Urine UA NEGATIVE (NEGATIVE); Color Urine UA YELLOW; Glucose Urine UA NEGATIVE (Negative); Ketones Urine UA TRACE (NEGATIVE); Leukocyte Esterase Urine UA 1+ (NEGATIVE); Nitrite Urine UA NEGATIVE (Negative); Occult Blood Urine UA TRACE-INTACT (Negative); Protein Urine UA TRACE (Negative); Specific Gravity Urine UA 1.025 (1.000-1.035); Urobilinogen Urine UA 0.2 E.U./dL (0.2)
[2021-01-20 18:11] LABS: pH Urine UA 5.5 (4.5-8.0)
[2021-01-20 18:23] LABS: Amorphous Sediment Urine 3+; Culture Indicated Urine Cult Not Indicated; RBC Urine 5-10/HPF (0-5/HPF); Squamous Epithelial Cell Urine 10-30 /HPF (0-5/HPF); WBC Urine 1-5/HPF (0-5/HPF)
[2021-01-20 20:19] LABS: Urine N gonorrhoeae NOT DETECTED
[2021-01-20 20:25] LABS: Urine Chlamydia NOT DETECTED
--- NOTE | 2021-01-20 21:56 | ED.GENADULT ---
HPI - General Adult General Chief complaint: Urogenital-Female Stated complaint: bad gastritis Time Seen by Provider: 01/20/21 21:51 Source: patient Mode of arrival: Ambulatory Limitations: no limitations History of Present Illness HPI narrative: Patient is a 50-year-old female who states that several weeks ago when she was still in [place] she was seen by her primary doctor for vaginal discharge. Without any exam she was presumptively treated for what sounds like bacterial vaginosis she was given Flagyl. She took this medication and she states that her symptoms did improve/resolve. She finished the course of this about 2 weeks ago. Went several days without any symptoms but then she started to get increasing vaginal discharge once again. No dysuria. No bleeding. Also has some lower abdominal discomfort. Has not had sexual intercourse since she was treated with the Flagyl. Related Data Previous Rx's Medication Instructions Recorded ondansetron 4 mg disintegrating 4 mg PO BID PRN #14 tab 07/15/19 tablet cyclobenzaprine 10 mg tablet 10 mg PO TID PRN #14 tab 08/04/19 lidocaine 5 % topical patch 1 patch TOP DAILY #1 each 08/04/19 beclomethasone dipropionate 40 1 inhalation INHALATION Q12H #10.6 08/13/19 mcg/actuation HFA breath activated gram aerosol (Qvar RediHaler) propranolol 10 mg tablet 10 mg PO BID #60 tab 08/13/19 metronidazole 500 mg tablet 500 mg PO BID 7 Days #14 tab 01/20/21 (Flagyl) Allergies Allergy/AdvReac Type Severity Reaction Status Date / Time codeine [CODEINE] Allergy Mild Verified 01/20/21 17:42 hydrocodone [HYDROCODONE] Allergy Mild RASH Verified 01/20/21 17:42 metoclopramide Allergy Mild Verified 01/20/21 17:42 [METOCLOPRAMIDE] morphine [MORPHINE] Allergy Mild Verified 01/20/21 17:42 Review of Systems Constitutional Constitutional: Denies fever(s) Cardiovascular Cardiovascular: Reports system reviewed and no additional complaints, except as documented Respiratory Respiratory: Reports system reviewed and no additional complaints, except as documented Gastrointestinal Gastrointestinal: Reports as per HPI Genitourinary Genitourinary: Reports vaginal discharge, Reports vaginal odor and Reports vaginal pruritus Musculoskeletal Musculoskeletal: Reports system reviewed and no additional complaints, except as documented Integumentary/Breasts Skin/Breast: Reports system reviewed and no additional complaints, except as documented Neurologic Neurologic: Reports system reviewed and no additional complaints, except as documented Psychiatric Psychiatric: Reports system reviewed and no additional complaints, except as documented Hematologic/Lymphatic On Anticoagulants: No Allergic/Immunologic Allergic/Immunologic: Reports system reviewed and no additional complaints, except as documented Patient History Medical History Anxiety PTSD (post-traumatic stress disorder) SVT (supraventricular tachycardia) Surgical History (Updated 08/05/19 @ 05:13 by Tree Mckeon MD) No significant past surgical history Social History Smoking Status: Never smoker Smoking Status: Never smoker alcohol intake frequency: holidays/special occasions only Substance Use Type: does not use Exam Initial Vital Signs Initial Vital Signs: Vital Signs Temperature 97.5 F L 01/20/21 17:42 Pulse Rate 89 01/20/21 17:42 Respiratory Rate 15 01/20/21 17:42 Blood Pressure 143/107 H 01/20/21 17:42 Pulse Oximetry 100 01/20/21 17:42 Const General: cooperative, healthy appearing and comfortable HENKS Head: normal to inspection and normocephalic Eyes General: appearance normal, both eyes and all related structures Neck Neck: normal visual inspection Chest Chest: normal inspection of the chest Resp Effort & Inspection: normal respiratory effort Cardio Rate: regular rate GI Palpation: soft and tender (Lower abdomen) External Female Exam: normal external appearance Speculum Exam - Vagina: abnormal vaginal discharge white and malodorous, no lesions and No vaginal bleeding Speculum Exam - Cervix: normal appearance of the cervix OB/External & Speculum: No vaginal bleeding Skin General: no rashes or lesions noted Neuro General: patient alert, patient awake and moves all extremities Extrem General: normal to inspection and capillary refill normal Psych Appearance: grossly normal and well kempt Course Orders Ordered: ED Orders 01/20/21 22:45 GC Screen Stat Genital Culture Stat HARLEY Prep Stat Wet Prep Tric BV Dionne Stat Discontinued Medications Metronidazole (Metronidazole 500 Mg Tablet) 500 mg PO NOW ONE Stop: 01/20/21 23:14 Last Admin: 01/20/21 23:28 Dose: 500 mg Documented by: JAYLIN Vital Signs Vital signs: Vital Signs - 8 hr 01/20/21 23:29 Pulse Rate 72 Respiratory Rate 16 Blood Pressure 138/70 Medical Decision Making Lab Data Labs: Lab Results 01/20/21 01/20/21 Range/Units 17:40 17:40 Urine Color Yellow Urine Appearance Cloudy Urine pH 5.5 (4.5-8.0) Ur Specific [place] 1.025 (1.000-1.035) Urine Protein Trace H (Negative) Urine Glucose (UA) Negative (Negative) g/dL Urine Ketones Trace H (NEGATIVE) Urine Occult Blood Trace-intact (Negative) Urine Nitrate Negative (Negative) Urine Bilirubin Negative (NEGATIVE) Urine Urobilinogen 0.2 (0.2) E.U./dL Ur Leukocyte Esterase 1+ H (NEGATIVE) Urine RBC 5-10/hpf H (0-5/HPF) Urine WBC 1-5/hpf (0-5/HPF) Ur Squamous Epith Cells 10-30 /hpf H (0-5/HPF) Amorphous Sediment 3+ Urine Bacteria None seen (None) Ur Culture Indicated? Cult not indicated Ur Chlamydia DNA (PCR) Not detected N gonorrhoeae DNA (PCR) Not detected MDM Narrative Medical decision making narrative: Her labs today are positive for Trichomonas. The Flagyl that she receive several weeks ago should have treated this and she states that it did improve/resolve the symptoms but no it has returned. She denies any sexual intercourse since that time. The rest of her cultures are unremarkable. I did inform her that therefore cultures that were pending at the time of discharge we will contact her if we need to do any other antibiotics. Plan we is to try another course of the Flagyl. She was instructed not to have intercourse until she is completely been treated and has followed up with her primary doctor to have a reexamination. She was given return precautions and follow-up instructions. She expressed understanding and agreement. Discharge Plan Departure Patient Disposition: Home Clinical Impression: Trichomoniasis Instructions: DI for Trichomoniasis Activity Restrictions/Additional Instructions: Recommend that you take the antibiotics as directed. If your symptoms do not improve you can contacted the [facility] at [phone] to see if you can make an appointment with the patient support representative providers. Return to the emergency department for any new or worsening symptoms Prescriptions: New metronidazole [Flagyl] 500 mg tablet 500 mg PO BID 7 Days Qty: 14 RF: 0 No Action ondansetron 4 mg tablet,disintegrating 4 mg PO BID PRN (Reason: nausea and vomiting) Qty: 14 RF: 0 Qvar RediHaler 40 mcg/actuation HFA aerosol breath activated 1 inhalation INHALATION Q12H Qty: 10.6 RF: 0 propranolol 10 mg tablet 10 mg PO BID Qty: 60 RF: 0 lidocaine 5 % adhesive patch,medicated 1 patch TOP DAILY Qty: 1 RF: 0 cyclobenzaprine 10 mg tablet 10 mg PO TID PRN (Reason: muscle spasm) Qty: 14 RF: 0
[2021-01-20] MEDS: metroNIDAZOLE 500 MG TABLET PO (23:28)
[2021-01-20 23:29] VITALS: BP 138/70; PULSE 72; RESP 16
== END 2021-01-20 23:30 | disposition home or self-care (01) ==
PROVIDERS: Emergency Medicine; Emergency Provider Emergency Medicine
DX: A59.9 Trichomoniasis, unspecified (principal)
CPT/HCPCS: 81001; 87070; 87081; 87147; 87205; 87210; 87220; 87491; 87591; 99283

== ENCOUNTER 2021-03-23 14:50 | Emergency (ER) | payer OTHER, SELFPAY ==
--- NOTE | 2021-03-23 15:01 | DI.RAD.S_ITS ---
PROCEDURE: XR CHEST 1V INDICATIONS: Flu-like symptoms TECHNIQUE: One view of the chest was acquired. COMPARISON: [facility], CR, XR CHEST 1V, 08/05/2019, 5:27. FINDINGS: Surgical changes and devices: None. Lungs and pleura: Lungs are clear. No pleural effusions or pneumothorax. Mediastinum: Mediastinal contours appear normal. Heart size is normal. Bones and chest wall: No suspicious bony lesions. Overlying soft tissues appear unremarkable. IMPRESSION: No acute cardiopulmonary process demonstrated radiographically. Dictated by: Velasquez Castillo M.D. on 03/23/2021 at 15:24 Approved by: Velasquez Castillo M.D. on 03/23/2021 at 15:28
[2021-03-23 15:04] VITALS: BP 155/94; PULSE 81; RESP 20; TEMP 36.8; O2SAT 100; BMI 24.2
[2021-03-23] MEDS: SODIUM CHLORIDE 0.9% 1,000 ML 125 ML IV (15:40)
[2021-03-23] MEDS: ONDANSETRON 4 MG/2 ML INJ IV (15:41)
[2021-03-23 15:42] LABS: Add Manual Diff / Slide Review NO; Basophils Absolute Auto 0 /uL (0-100); Basophils Percent Auto 0.4 % (0-2); Eosinophils Absolute Auto 0 /uL (0-450); Eosinophils Percent Auto 0.8 % (2-4); Hematocrit 42.6 % (36-46); Hemoglobin 13.9 g/dL (12.0-16.0); Lymphocytes Absolute Auto 1500 /uL (1100-4500); Lymphocytes Percent Auto 38.1 % (25-40); Mean Corpuscular HGB Conc 32.5 % (30-36); Mean Corpuscular Hemoglobin 27.9 PG (26-34); Mean Corpuscular Volume 85.7 fL (80-100); Monocytes Absolute Auto 300 /uL (0-900); Monocytes Percent Auto 7.2 % (3-14); Neutrophils Absolute Auto 2100 /uL (1500-7000); Neutrophils Percent Auto 53.5 % (50-75); Platelet Count 193 X10^3/uL (150-400); Red Blood Cell Count 4.98 X10^6/uL (4.0-5.2); Red Cell Distribution Width 13.4 % (11.6-14.8); White Blood Cell Count 3.9 X10^3/uL (4.5-11.0)
[2021-03-23 15:55] LABS: Lactate (Lactic Acid) 1.1 mmol/L (0.7-2.1)
[2021-03-23 15:56] LABS: Alanine Aminotransferase 11 IU/L (<35); Albumin 4.6 g/dL (3.5-5.0); Albumin Globulin Ratio 1.4 (1.0-2.8); Alkaline Phosphatase 73 U/L (38-126); Aspartate Aminotransferase 19 IU/L (14-36); BUN Creatinine Ratio 18.2 (6-22); Bilirubin Total 0.3 mg/dL (0.2-1.3); Blood Urea Nitrogen 12 mg/dL (7-17); C-Reactive Protein Quant 0.5 mg/dL (<1.0); Calcium 9.8 mg/dL (8.4-10.2); Carbon Dioxide 31 mmol/L (22-32); Chloride 102 mmol/L (98-107); Creatine Kinase 40 U/L (30-135); Estimated Glomerular Filt Rate > 60.0 mL/min (>60); Globulin 3.4 g/dL (1.7-4.1); Glucose 105 mg/dL (70-100); HEMOLYSIS < 15 (0-50); Lactate Dehydrogenase 379 U/L (313-618); Potassium 3.8 mmol/L (3.4-5.1); Sodium 139 mmol/L (137-145)
[2021-03-23 16:01] LABS: COVID19 -Nasal RAPID POSITIVE (Negative)
[2021-03-23 16:06] LABS: NT-proBNP (BNP-Adult 18+) 121 pg/mL (<125); Troponin I < 0.012 ng/mL (0.01-0.034)
[2021-03-23 16:10] VITALS: PULSE 74; O2SAT 97
[2021-03-23 16:12] LABS: Procalcitonin 0.04 ng/mL (<0.5)
--- NOTE | 2021-03-23 16:15 | ED_ITS ---
HPI - General Adult General Chief complaint: Upper Respiratory Symptoms Stated complaint: sob, achy, green phlem Time Seen by Provider: 03/23/21 16:06 Source: patient Mode of arrival: Ambulatory Limitations: no limitations History of Present Illness HPI narrative: Patient is a 50-year-old female. Has had COVID like symptoms for the past 2 weeks. Has had a positive home COVID test. She also has a history of reactive airway disease. States she is allergic to albuterol. Is on a type of inhaler that she does not know the name of. She is here because she is short of breath, achy, green phlegm is having to use her inhaler more often. Related Data Previous Rx's Medication Instructions Recorded ondansetron 4 mg disintegrating 4 mg PO BID PRN #14 tab 07/15/19 tablet cyclobenzaprine 10 mg tablet 10 mg PO TID PRN #14 tab 08/04/19 lidocaine 5 % topical patch 1 patch TOP DAILY #1 each 08/04/19 beclomethasone dipropionate 40 1 inhalation INHALATION Q12H #10.6 08/13/19 mcg/actuation HFA breath activated gram aerosol (Qvar RediHaler) propranolol 10 mg tablet 10 mg PO BID #60 tab 08/13/19 beclomethasone dipropionate 40 2 inh INHALATION BID #10.6 g 03/23/21 mcg/actuation HFA breath activated aerosol Allergies Allergy/AdvReac Type Severity Reaction Status Date / Time Opioids - Morphine Analogues Allergy Intermediate Swelling Verified 03/23/21 15:04 of Lip/Tongue/Throat codeine [CODEINE] Allergy Mild Verified 01/20/21 17:42 hydrocodone [HYDROCODONE] Allergy Mild RASH Verified 01/20/21 17:42 metoclopramide Allergy Mild Hallucinati Verified 03/23/21 15:04 [METOCLOPRAMIDE] ng morphine [MORPHINE] Allergy Mild Verified 01/20/21 17:42 Review of Systems Cardiovascular Cardiovascular: Reports as per HPI and Reports system reviewed and no additional complaints, except as documented Respiratory Respiratory: Reports system reviewed and no additional complaints, except as documented Gastrointestinal Gastrointestinal: Reports system reviewed and no additional complaints, except as documented Genitourinary Genitourinary: Reports system reviewed and no additional complaints, except as documented Integumentary/Breasts Skin/Breast: Reports system reviewed and no additional complaints, except as documented Neurologic Neurologic: Reports system reviewed and no additional complaints, except as documented Hematologic/Lymphatic On Anticoagulants: No Patient History Medical History Anxiety PTSD (post-traumatic stress disorder) SVT (supraventricular tachycardia) Surgical History (Updated 08/05/19 @ 05:13 by Tree Mckeon MD) No significant past surgical history Social History Smoking Status: Never smoker Smoking Status: Never smoker alcohol intake frequency: holidays/special occasions only Substance Use Type: does not use Exam Initial Vital Signs Initial Vital Signs: Vital Signs Temperature 98.2 F 03/23/21 15:04 Pulse Rate 81 03/23/21 15:04 Respiratory Rate 20 03/23/21 15:04 Blood Pressure 155/94 H 03/23/21 15:04 Pulse Oximetry 100 03/23/21 15:04 HENMT Head: normal to inspection and normocephalic Eyes General: appearance normal, both eyes and all related structures Resp Auscultation: clear to auscultation bilaterally Cardio Rate: regular rate Rhythm: regular rhythm GI Inspection: normal to inspection Palpation: soft Skin Lesions: no lesions Neuro General: patient alert, patient awake and moves all extremities Extrem General: normal to inspection and capillary refill normal Course Orders Ordered: ED Orders 03/23/21 15:00 EKG-12 Lead Stat 03/23/21 15:01 XR chest 1V Stat 03/23/21 15:02 COVID19 -Nasal swab/Pre-Proc Stat 03/23/21 15:33 C-Reactive Protein Quant Stat Complete Blood Count AUTO DIFF Stat Comprehensive Metabolic Panel Stat Ferritin Stat Lactate (Lactic Acid) Stat Lactate Dehydrogenase Stat NT-proBNP (BNP-Adult 18+) Stat Procalcitonin Stat Troponin & CK Cardiac Panel Stat Discontinued Medications Sodium Chloride (Normal Saline 0.9%) 1,000 mls @ 125 mls/hr IV CONT SARAH Last Admin: 03/23/21 15:40 Dose: 125 mls/hr Documented by: PEDRO Ondansetron HCl (Ondansetron 4 Mg/2 Ml Inj) 4 mg IV NOW ONE Stop: 03/23/21 15:08 Last Admin: 03/23/21 15:41 Dose: 4 mg Documented by: PEDRO Vital Signs Vital signs: Vital Signs - 8 hr 03/23/21 15:04 03/23/21 16:10 03/23/21 16:30 Temperature 98.2 F Pulse Rate 81 74 68 Respiratory Rate 20 Blood Pressure 155/94 H 134/90 Pulse Oximetry 100 97 98 Medical Decision Making Lab Data Lab results reviewed: Yes I reviewed the patient's lab results. Result diagrams: 03/23/21 15:33 03/23/21 15:33 Labs: Lab Results 03/23/21 03/23/21 03/23/21 Range/Units 15:02 15:33 15:33 WBC 3.9 L (4.5-11.0) X10^3/uL RBC 4.98 (4.0-5.2) X10^6/uL Hgb 13.9 (12.0-16.0) g/dL Hct 42.6 (36-46) % MCV 85.7 (80-100) fL MCH 27.9 (26-34) PG MCHC 32.5 (30-36) % RDW 13.4 (11.6-14.8) % Plt Count 193 (150-400) X10^3/uL Neut % (Auto) 53.5 (50-75) % Lymph % (Auto) 38.1 (25-40) % [place] % (Auto) 7.2 (3-14) % Eos % (Auto) 0.8 L (2-4) % Baso % (Auto) 0.4 (0-2) % Neut # (Auto) 2100 (1077-0183) /uL Lymph # (Auto) 1500 (0676-8097) /uL [place] # (Auto) 300 (0-900) /uL Eos # (Auto) 0 (0-450) /uL Baso # (Auto) 0 (0-100) /uL Sodium (137-145) mmol/L Potassium (3.4-5.1) mmol/L Chloride (98-107) mmol/L Carbon Dioxide (22-32) mmol/L BUN (7-17) mg/dL Creatinine (0.52-1.04) mg/dL Estimated GFR (>60) mL/min BUN/Creatinine Ratio (6-22) Glucose (70-100) mg/dL Lactate (0.7-2.1) mmol/L Calcium (8.4-10.2) mg/dL Ferritin (11-264) ng/mL Total Bilirubin (0.2-1.3) mg/dL AST (14-36) IU/L ALT (<35) IU/L Alkaline Phosphatase (38-126) U/L Lactate Dehydrogenase (313-618) U/L Total Creatine Kinase (30-135) U/L CK-MB (CK-2) CK-MB (CK-2) Rel Index Troponin I (0.01-0.034) ng/mL C-Reactive Protein (<1.0) mg/dL NT-Pro-B Natriuret Pep (<125) pg/mL Total Protein (6.3-8.2) g/dL Albumin (3.5-5.0) g/dL Globulin (1.7-4.1) g/dL Albumin/Globulin Ratio (1.0-2.8) Procalcitonin 0.04 (<0.5) ng/mL SARS-CoV-2 (PCR) Positive H (Negative) 03/23/21 03/23/21 Range/Units 15:33 15:33 WBC (4.5-11.0) X10^3/uL RBC (4.0-5.2) X10^6/uL Hgb (12.0-16.0) g/dL Hct (36-46) % MCV (80-100) fL MCH (26-34) PG MCHC (30-36) % RDW (11.6-14.8) % Plt Count (150-400) X10^3/uL Neut % (Auto) (50-75) % Lymph % (Auto) (25-40) % [place] % (Auto) (3-14) % Eos % (Auto) (2-4) % Baso % (Auto) (0-2) % Neut # (Auto) (7026-0594) /uL Lymph # (Auto) (7989-1542) /uL [place] # (Auto) (0-900) /uL Eos # (Auto) (0-450) /uL Baso # (Auto) (0-100) /uL Sodium 139 (137-145) mmol/L Potassium 3.8 (3.4-5.1) mmol/L Chloride 102 (98-107) mmol/L Carbon Dioxide 31 (22-32) mmol/L BUN 12 (7-17) mg/dL Creatinine 0.66 (0.52-1.04) mg/dL Estimated GFR > 60.0 (>60) mL/min BUN/Creatinine Ratio 18.2 (6-22) Glucose 105 H (70-100) mg/dL Lactate 1.1 (0.7-2.1) mmol/L Calcium 9.8 (8.4-10.2) mg/dL Ferritin 17 (11-264) ng/mL Total Bilirubin 0.3 (0.2-1.3) mg/dL AST 19 (14-36) IU/L ALT 11 (<35) IU/L Alkaline Phosphatase 73 (38-126) U/L Lactate Dehydrogenase 379 (313-618) U/L Total Creatine Kinase 40 (30-135) U/L CK-MB (CK-2) TNP CK-MB (CK-2) Rel Index TNP Troponin I < 0.012 (0.01-0.034) ng/mL C-Reactive Protein 0.5 (<1.0) mg/dL NT-Pro-B Natriuret Pep 121 (<125) pg/mL Total Protein 8.0 (6.3-8.2) g/dL Albumin 4.6 (3.5-5.0) g/dL Globulin 3.4 (1.7-4.1) g/dL Albumin/Globulin Ratio 1.4 (1.0-2.8) Procalcitonin (<0.5) ng/mL SARS-CoV-2 (PCR) (Negative) Imaging Data Chest x-ray: Radiologist's Impression: [address] [id number] ReportSigned Patient: Moni Payne MMR#: [id number]: 1970Acct:[id number]/Sex: 50 / FDate of Service: 03/23/21Loc: EDAccession Number: [id number] Procedure: XR chest 1V Ordering Provider: Olayinka Alvarez D.O. PROCEDURE: XR CHEST 1V INDICATIONS: Flu-like symptoms TECHNIQUE: One view of the chest was acquired. COMPARISON: [facility], , XR CHEST 1V, 08/05/2019, 5:27. FINDINGS: Surgical changes and devices: None. Lungs and pleura: Lungs are clear. No pleural effusions or pneumothorax. Mediastinum: Mediastinal contours appear normal. Heart size is normal. Bones and chest wall: No suspicious bony lesions. Overlying soft tissues appear unremarkable. IMPRESSION: No acute cardiopulmonary process demonstrated radiographically. Dictated by: Velasquez Castillo M.D. on 03/23/2021 at 15:24 Approved by: Velasquez Castillo M.D. on 03/23/2021 at 15:28 ECG Data Attestation: I personally reviewed and interpreted this ECG as follows: Interpretation: Sinus bradycardia Ventricular rate of 58 Normal axis Normal QRS Normal QTC No ST T wave changes MDM Narrative Medical decision making narrative: Patient is COVID positive. No respiratory distress. EKG is unremarkable. Labs unremarkable. Chest x-ray shows no signs of pneumonia. Given the fact that she does not require oxygen we do want to avoid steroids secondary to her positive COVID status. No indication for admission to the hospital. No indication for antibiotics. Will refill her inhaler. She was given return precautions and follow-up instructions. She expressed understanding and agreement. Discharge Plan Departure Patient Disposition: Home Clinical Impression: COVID-19 Instructions: DI for COVID-19 (Suspected or Confirmed ) Activity Restrictions/Additional Instructions: Your symptoms today are consistent with a COVID-19 infection. Continue to use your inhaler as directed. Contact your primary doctor for follow-up. return to the emergency department for any worsening symptoms Prescriptions: New beclomethasone dipropionate 40 mcg/actuation HFA aerosol breath activated 2 inh inhalation BID Qty: 10.6 RF: 0 No Action ondansetron 4 mg tablet,disintegrating 4 mg PO BID PRN (Reason: nausea and vomiting) Qty: 14 RF: 0 Qvar RediHaler 40 mcg/actuation HFA aerosol breath activated 1 inhalation INHALATION Q12H Qty: 10.6 RF: 0 propranolol 10 mg tablet 10 mg PO BID Qty: 60 RF: 0 lidocaine 5 % adhesive patch,medicated 1 patch TOP DAILY Qty: 1 RF: 0 cyclobenzaprine 10 mg tablet 10 mg PO TID PRN (Reason: muscle spasm) Qty: 14 RF: 0
[2021-03-23 16:29] LABS: Ferritin 17 ng/mL (11-264)
[2021-03-23 16:30] VITALS: BP 134/90; PULSE 68; O2SAT 98
== END 2021-03-23 16:55 | disposition home or self-care (01) ==
PROVIDERS: Emergency Provider Emergency Medicine
DX: U07.1 COVID-19 (principal); R07.9 Chest pain, unspecified
CPT/HCPCS: 36415; 71045; 80053; 82550; 82728; 83605; 83615; 83880; 84145; 84484; 85025; 86140; 87635; 93005; 93010; 99284; C9803; J2405

== ENCOUNTER 2021-05-01 21:04 | Emergency (ER) | payer OTHER, SELFPAY ==
[2021-05-01 21:12] VITALS: BP 176/103; PULSE 106; RESP 22; TEMP 37.2; O2SAT 99
[2021-05-01 23:04] VITALS: BP 171/93; PULSE 92; O2SAT 100
--- NOTE | 2021-05-01 23:53 | ED_ITS ---
HPI - Extremity Problem General Chief complaint: Extremity Problem,Nontraumatic Stated complaint: Lumps on feet, sweeling, neck+back , arthritis Time Seen by Provider: 05/01/21 23:53 Source: patient Mode of arrival: Ambulatory History of Present Illness HPI Narrative: 50-year-old woman with a history of degenerative arthritis, chronic neck pain presents with a myriad of complaints this evening she notes that she has had headache she feels some grinding and cracking in her neck with an area over the upper thoracic area including both trapezius muscles that feels numb and tingly. She does not describe any decrease use in the upper ext remities. She also describes swelling of her right great toe with swelling over the dorsum of the foot with pain radiating up through the leg all the way to her head. She describes no recent chest pain, dyspnea, orthopnea, abdominal pain, vomiting or diarrhea. She has not been having fevers, chills or abnormal weight changes. Related Data Previous Rx's Medication Instructions Recorded ondansetron 4 mg disintegrating 4 mg PO BID PRN #14 tab 07/15/19 tablet cyclobenzaprine 10 mg tablet 10 mg PO TID PRN #14 tab 08/04/19 lidocaine 5 % topical patch 1 patch TOP DAILY #1 each 08/04/19 beclomethasone dipropionate 40 1 inhalation INHALATION Q12H #10.6 08/13/19 mcg/actuation HFA breath activated gram aerosol (Qvar RediHaler) propranolol 10 mg tablet 10 mg PO BID #60 tab 08/13/19 beclomethasone dipropionate 40 2 inh INHALATION BID #10.6 g 03/23/21 mcg/actuation HFA breath activated aerosol cyclobenzaprine 10 mg tablet 10 mg PO TID PRN #14 tab 05/02/21 Allergies Allergy/AdvReac Type Severity Reaction Status Date / Time Opioids - Morphine Analogues Allergy Intermediate Swelling Verified 03/23/21 15:04 of Lip/Tongue/Throat codeine [CODEINE] Allergy Mild Verified 01/20/21 17:42 hydrocodone [HYDROCODONE] Allergy Mild RASH Verified 01/20/21 17:42 metoclopramide Allergy Mild Hallucinati Verified 03/23/21 15:04 [METOCLOPRAMIDE] ng morphine [MORPHINE] Allergy Mild Verified 01/20/21 17:42 Review of Systems Review of Systems Narrative: Remainder of complete review of systems is otherwise unremarkable except for that included in the HPI. Patient History Medical History (Updated 05/02/21 @ 01:29 by Carmenza Mathur MD) Anxiety Degenerative joint disease PTSD (post-traumatic stress disorder) SVT (supraventricular tachycardia) Surgical History No significant past surgical history Social History Smoking Status: Never smoker Smoking Status: Never smoker alcohol intake frequency: holidays/special occasions only Substance Use Type: does not use Exam Narrative Exam Narrative: General: Healthy appearing, anxious but in no acute distress. Able to give a complete and coherent history. Well-nourished well-developed HEENT: Moist mucous membranes, normal sclera with reactive pupils, Neck: supple, no midline tenderness or erythema. Bilateral trapezius muscle spasm. Respiratory: Lungs are clear to auscultation, no wheezing no rales no rhonchi. Full and symmetrical air movement Cardiac: Regular rate and rhythm no murmurs no bruits Abdomen: Soft, nontender, good bowel tones, no flank pain Skin: Warm and dry, no rashes Neurologic: Grossly neurologically intact with no obvious asymmetries or abnormalities, able to move both arms with normal strength and no paresthesias. Extremities: No trauma, well perfused. Right great toe is examined. At this point is completely normal with no skin changes or abnormalities over the dorsum of the foot. She states that it has ?dramatically improved since she has been in the ER Psych: Cooperative, appropriate insight and affect Initial Vital Signs Initial Vital Signs: Vital Signs Temperature 98.9 F 05/01/21 21:12 Pulse Rate 106 H 05/01/21 21:12 Respiratory Rate 22 05/01/21 21:12 Blood Pressure 176/103 H 05/01/21 21:12 Pulse Oximetry 99 05/01/21 21:12 Course Orders Ordered: ED Orders 05/02/21 00:20 Complete Blood Count AUTO DIFF Stat Comprehensive Metabolic Panel Stat Uric Acid Stat Discontinued Medications Dexamethasone (Dexamethasone 1 Mg Tablet) 10 mg 0.15 mg/kg (10 mg) PO NOW ONE Stop: 05/02/21 00:10 Last Admin: 05/02/21 01:09 Dose: Not Given Documented by: KATIE Dexamethasone (Dexamethasone 4 Mg Tablet) 8 mg PO NOW ONE Stop: 05/02/21 01:02 Last Admin: 05/02/21 01:09 Dose: 8 mg Documented by: KATIE Vital Signs Vital signs: Vital Signs - 8 hr 05/01/21 21:12 05/01/21 23:04 Temperature 98.9 F Pulse Rate 106 H 92 H Respiratory Rate 22 Blood Pressure 176/103 H 171/93 H Pulse Oximetry 99 100 MDM - Extremity (Nontraumatic) Lab Data Result diagrams: 05/02/21 00:20 05/02/21 00:20 Labs: Lab Results 05/02/21 05/02/21 Range/Units 00:20 00:20 WBC 4.7 (4.5-11.0) X10^3/uL RBC 4.34 (4.0-5.2) X10^6/uL Hgb 12.2 (12.0-16.0) g/dL Hct 37.1 (36-46) % MCV 85.3 (80-100) fL MCH 28.2 (26-34) PG MCHC 33.0 (30-36) % RDW 13.8 (11.6-14.8) % Plt Count 246 (150-400) X10^3/uL Neut % (Auto) 47.5 L (50-75) % Lymph % (Auto) 41.1 H (25-40) % [place] % (Auto) 8.8 (3-14) % Eos % (Auto) 2.0 (2-4) % Baso % (Auto) 0.6 (0-2) % Neut # (Auto) 2200 (1038-8881) /uL Lymph # (Auto) 1900 (9117-0163) /uL [place] # (Auto) 400 (0-900) /uL Eos # (Auto) 100 (0-450) /uL Baso # (Auto) 0 (0-100) /uL Sodium 137 (137-145) mmol/L Potassium 4.0 (3.4-5.1) mmol/L Chloride 101 (98-107) mmol/L Carbon Dioxide 31 (22-32) mmol/L BUN 19 H (7-17) mg/dL Creatinine 0.93 (0.52-1.04) mg/dL Estimated GFR > 60.0 (>60) mL/min BUN/Creatinine Ratio 20.4 (6-22) Glucose 89 (70-100) mg/dL Uric Acid 4.2 (2.5-6.2) mg/dL Calcium 9.7 (8.4-10.2) mg/dL Total Bilirubin 0.2 (0.2-1.3) mg/dL AST 16 (14-36) IU/L ALT 13 (<35) IU/L Alkaline Phosphatase 68 (38-126) U/L Total Protein 6.9 (6.3-8.2) g/dL Albumin 4.1 (3.5-5.0) g/dL Globulin 2.8 (1.7-4.1) g/dL Albumin/Globulin Ratio 1.5 (1.0-2.8) MDM Narrative Medical decision making narrative: 50-year-old woman with a myriad of nonp hysiologic complaints. Lab work does not suggest any acute infection, renal abnormalities or gout. 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 I am not concerned about acute cord syndromes, epidural abscess or infection. Regarding her great toe, uric acid is normal. Physical exam is normal. May be that she had a brief flare of her arthritis in that toe but at this point is doing significantly better Talked about use of muscle relaxers for 1-2 days to help with the neck pain. She states that she has taken Flexeril in the past but not for about a year and a half. When she did use it, was helpful for muscle spasm. Will provider with a brief course for the next couple of days an follow-up with her primary care provider. She is safe for home discharge Discharge Plan Departure Patient Disposition: Home Clinical Impression: Trapezius muscle spasm Great toe pain Qualifiers: Laterality: right Qualified Code(s): M79.674 - Pain in right toe(s) Instructions: DI for Muscle Spasm Activity Restrictions/Additional Instructions: Thank you for coming in today Your symptoms sound disconcerting. Your blood work today was very reassuring. There is no sign of infection, liver failure, kidney failure or electrolyte abnormalities. Additionally there was no sign of gout. I suspect that neck pain is from arthritis in your neck that is causing spasm into the neck muscles on either side(the trapezius muscles). For this I will give you a brief prescription for cyclobenzaprine. 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 Regarding your foot, fortunately symptoms seem to be improving and I do not find any immediate area that needs further attention. Please follow-up with your primary care provider I wish you the best Prescriptions: New cyclobenzaprine 10 mg tablet 10 mg PO TID PRN (Reason: muscle spasm) Qty: 14 RF: 0 No Action ondansetron 4 mg tablet,disintegrating 4 mg PO BID PRN (Reason: nausea and vomiting) Qty: 14 RF: 0 Qvar RediHaler 40 mcg/actuation HFA aerosol breath activated 1 inhalation INHALATION Q12H Qty: 10.6 RF: 0 propranolol 10 mg tablet 10 mg PO BID Qty: 60 RF: 0 lidocaine 5 % adhesive patch,medicated 1 patch TOP DAILY Qty: 1 RF: 0 cyclobenzaprine 10 mg tablet 10 mg PO TID PRN (Reason: muscle spasm) Qty: 14 RF: 0 beclomethasone dipropionate 40 mcg/actuation HFA aerosol breath activated 2 inh inhalation BID Qty: 10.6 RF: 0
[2021-05-02 00:33] LABS: Add Manual Diff / Slide Review NO; Basophils Absolute Auto 0 /uL (0-100); Basophils Percent Auto 0.6 % (0-2); Eosinophils Absolute Auto 100 /uL (0-450); Hematocrit 37.1 % (36-46); Hemoglobin 12.2 g/dL (12.0-16.0); Lymphocytes Absolute Auto 1900 /uL (1100-4500); Lymphocytes Percent Auto 41.1 % (25-40); Mean Corpuscular Hemoglobin 28.2 PG (26-34); Mean Corpuscular Volume 85.3 fL (80-100); Monocytes Absolute Auto 400 /uL (0-900); Monocytes Percent Auto 8.8 % (3-14); Neutrophils Absolute Auto 2200 /uL (1500-7000); Neutrophils Percent Auto 47.5 % (50-75); Platelet Count 246 X10^3/uL (150-400); Red Blood Cell Count 4.34 X10^6/uL (4.0-5.2); Red Cell Distribution Width 13.8 % (11.6-14.8); White Blood Cell Count 4.7 X10^3/uL (4.5-11.0)
[2021-05-02 00:44] LABS: Alanine Aminotransferase 13 IU/L (<35); Albumin 4.1 g/dL (3.5-5.0); Albumin Globulin Ratio 1.5 (1.0-2.8); Alkaline Phosphatase 68 U/L (38-126); Aspartate Aminotransferase 16 IU/L (14-36); BUN Creatinine Ratio 20.4 (6-22); Bilirubin Total 0.2 mg/dL (0.2-1.3); Blood Urea Nitrogen 19 mg/dL (7-17); Calcium 9.7 mg/dL (8.4-10.2); Carbon Dioxide 31 mmol/L (22-32); Chloride 101 mmol/L (98-107); Estimated Glomerular Filt Rate > 60.0 mL/min (>60); Globulin 2.8 g/dL (1.7-4.1); Glucose 89 mg/dL (70-100); HEMOLYSIS < 15 (0-50); Sodium 137 mmol/L (137-145); Total Protein 6.9 g/dL (6.3-8.2); Uric Acid 4.2 mg/dL (2.5-6.2)
[2021-05-02] MEDS: dexAMETHasone 4 MG TABLET 8 MG PO (01:09)
[2021-05-02] MEDS: CYCLOBENZAPRINE 10 MG TABLET PO (01:31)
[2021-05-02 01:37] VITALS: BP 164/93; PULSE 100; RESP 18; O2SAT 99
== END 2021-05-02 01:37 | disposition home or self-care (01) ==
PROVIDERS: Emergency Provider Emergency Medicine
DX: M62.830 Muscle spasm of back (principal); M79.674 Pain in right toe(s)
CPT/HCPCS: 36415; 80053; 84550; 85025; 99283

== ENCOUNTER 2021-05-16 18:11 | Emergency (ER) | payer OTHER, SELFPAY ==
[2021-05-16] VITALS (17 sets, daily range): BP systolic 136–186; BP diastolic 85–106; PULSE 65–150; RESP 15–32; TEMP 36.3–36.8; O2SAT 91–100
--- NOTE | 2021-05-16 18:15 | DI.RAD.S_ITS ---
PROCEDURE: XR CHEST 1V INDICATIONS: SOB TECHNIQUE: One view of the chest was acquired. COMPARISON: [facility], , XR CHEST 1V, 03/23/2021, 15:09. FINDINGS: Surgical changes and devices: None. Lungs and pleura: Lungs are clear. No pleural effusions or pneumothorax. Mediastinum: Mediastinal contours appear normal. Heart size is normal. Bones and chest wall: No suspicious bony lesions. Overlying soft tissues appear unremarkable. IMPRESSION: No acute cardiopulmonary findings Approved by: Dao Amaya M.D. on 05/16/2021 at 18:04
--- NOTE | 2021-05-16 18:23 | ED_ITS ---
HPI - SOB/Dyspnea General Chief Complaint: Chest Pain Stated Complaint: Chest Pain/Swelling/Thirsty/Sob Time Seen by Provider: 05/16/21 18:15 Source: patient Mode of arrival: Ambulatory History of Present Illness HPI Narrative: 50-year-old female Nonsmoker with a history of SVT presents with a chief complaint of generally feeling unwell and quite anxious over at least the course of the day. She states that she has been swelling in her hands her feet hurt, her knees and abdomen. She states that when she stands up but she becomes dizzy, weak, lightheaded and short of breath and that her swelling worsens. When she lays flat she seems to feel better. She denies any new medications or diet. She denies any nausea, vomiting or diarrhea. She has had no fever or chills. Any exertion makes her feel terrible. Related Data Previous Rx's Medication Instructions Recorded ondansetron 4 mg disintegrating 4 mg PO BID PRN #14 tab 07/15/19 tablet cyclobenzaprine 10 mg tablet 10 mg PO TID PRN #14 tab 08/04/19 lidocaine 5 % topical patch 1 patch TOP DAILY #1 each 08/04/19 beclomethasone dipropionate 40 1 inhalation INHALATION Q12H #10.6 08/13/19 mcg/actuation HFA breath activated gram aerosol (Qvar RediHaler) propranolol 10 mg tablet 10 mg PO BID #60 tab 08/13/19 beclomethasone dipropionate 40 2 inh INHALATION BID #10.6 g 03/23/21 mcg/actuation HFA breath activated aerosol cyclobenzaprine 10 mg tablet 10 mg PO TID PRN #14 tab 05/02/21 furosemide 40 mg tablet (Lasix) 40 mg PO DAILY #5 tab 05/16/21 potassium chloride 20 mEq 20 meq PO BID #14 tab 05/16/21 tablet,extended release Allergies Allergy/AdvReac Type Severity Reaction Status Date / Time Opioids - Morphine Analogues Allergy Intermediate Swelling Verified 03/23/21 15:04 of Lip/Tongue/Throat codeine [CODEINE] Allergy Mild Verified 01/20/21 17:42 hydrocodone [HYDROCODONE] Allergy Mild RASH Verified 01/20/21 17:42 metoclopramide Allergy Mild Hallucinati Verified 03/23/21 15:04 [METOCLOPRAMIDE] ng morphine [MORPHINE] Allergy Mild Verified 01/20/21 17:42 Review of Systems Review of Systems Narrative: GENERAL: See HPI HEENT: Denies sinus pain, ear pain, sore throat, difficulty swallowing, dizziness. RESPIRATORY: Denies dyspnea, cough, wheezing, hemoptysis, sputum. CARDIOVASCULAR: See HPI GASTROINTESTINAL: Denies nausea, vomiting, abdominal pain, diarrhea, constipation, melena. : Denies dysuria, frequency, incontinence, hematuria, urinary retention. MUSCULOSKELETAL: See HPI SKIN: Denies rash, skin lesions, or other NEUROLOGIC: Denies weakness, headache, numbness, change in speech, confusion, seizures, incoordination. PSYCHIATRIC: No concerning psychosocial issues. 12 point review of systems is negative except for those stated above Patient History Medical History Anxiety Degenerative joint disease PTSD (post-traumatic stress disorder) SVT (supraventricular tachycardia) Surgical History No significant past surgical history Social History Smoking Status: Never smoker Smoking Status: Never smoker alcohol intake frequency: holidays/special occasions only Substance Use Type: does not use Exam Narrative Exam Narrative: GENERAL: [50] year old patient appears stated age. Well- developed patient, in mild distress. Anxious HEAD: Atraumatic. Normocephalic. EYES: Pupils equal round and reactive. Extraocular motions intact. No scleral icterus. No injection or drainage. ENT: Nose without bleeding, purulent drainage. Throat without erythema, tonsillar hypertrophy or exudate. Airway patent. NECK: Trachea midline. Non tender CARDIOVASCULAR:tachycardic but regular rhythm without murmurs, gallops, or rubs. RESPIRATORY: Clear to auscultation. Breath sounds equal bilaterally. No wheezes, rales, or rhonchi. Rapid, shallow breathing GASTROINTESTINAL: Abdomen soft, non-tender, nondistended. EXTREMITIES: No edema or joint tenderness. BACK: Nontender without deformity or crepitance. No flank tenderness. NEURO: AOx3. SKIN: No rash or erythema of visible areas Initial Vital Signs Initial Vital Signs: Vital Signs Temperature 97.4 F L 05/16/21 18:17 Pulse Rate 79 05/16/21 18:17 Respiratory Rate 28 H 05/16/21 18:17 Blood Pressure 186/106 H 05/16/21 18:17 Pulse Oximetry 100 05/16/21 18:17 Course Orders Ordered: ED Orders 05/16/21 18:15 XR chest 1V Stat 05/16/21 18:19 EKG-12 Lead Stat 05/16/21 18:21 COVID19 -Nasal swab/Pre-Proc Stat Complete Blood Count AUTO DIFF Stat Comprehensive Metabolic Panel Stat D Dimer Stat Lipase Stat NT-proBNP (BNP-Adult 18+) Stat Procalcitonin Stat Prothrombin Time INR Stat Troponin & CK Cardiac Panel Stat 05/16/21 21:11 Troponin I Stat 05/16/21 22:31 Basic Metabolic Panel Stat Complete Blood Count AUTO DIFF Stat Troponin & CK Cardiac Panel Stat 05/16/21 22:46 CT angio chest abdomen pelvis Stat Sodium Chloride (Normal Saline 0.9%) 1,000 mls @ 150 mls/hr IV CONT SARAH Last Admin: 05/16/21 19:01 Dose: Not Given Documented by: JAYLIN Discontinued Medications Furosemide (Furosemide 40 Mg/4 Ml Vial) 40 mg IV NOW ONE Stop: 05/16/21 20:39 Last Admin: 05/16/21 20:46 Dose: 40 mg Documented by: KAELYN Lactated Ringer's (Lactated Ringers) 1,000 mls @ 1,000 mls/hr IV BOLUS ONE Stop: 05/16/21 22:56 Last Infusion: 05/17/21 00:07 Dose: 0 mls/hr Documented by: Admin: 05/16/21 22:07 Dose: 1,000 mls/hr Documented by: KATIE Lactated Ringer's (Lactated Ringers) 1,000 mls @ 1,000 mls/hr IV BOLUS ONE Stop: 05/17/21 01:07 Last Infusion: 05/17/21 01:33 Dose: 0 mls/hr Documented by: Admin: 05/17/21 00:16 Dose: 1,000 mls/hr Documented by: KATIE Lorazepam (Lorazepam 2 Mg/Ml Inj) 1 mg IV NOW ONE Stop: 05/16/21 22:48 Last Admin: 05/16/21 23:03 Dose: 1 mg Documented by: KAELYN Ondansetron HCl (Ondansetron 4 Mg/2 Ml Inj) 4 mg IV NOW ONE Stop: 05/16/21 22:12 Last Admin: 05/16/21 22:15 Dose: 4 mg Documented by: KATIE Potassium Chloride (Potassium Chloride 20 Meq/15 Ml Udc) 40 meq PO NOW ONE Stop: 05/16/21 19:21 Last Admin: 05/16/21 19:57 Dose: 40 meq Documented by: JAYLIN Reevaluation(s) Reevaluation #1: Patient feels significant improvement after a few L of fluid. Her resting heart rate is typically over 100 and though she still bumps to the upper 1 teens upon standing she feels significant improvement. Repeat labs continue to be reassuring, she has had extensive radiographic imaging and EKGs and there is no evidence of blood clot, pericardial effusion, pneumonia or other ominous finding. She has been given return precautions and encouraged to c onsider not flying tomorrow and attempting to delay for a few days. She has had questions answered to her apparent satisfaction Vital Signs Vital signs: Vital Signs - 8 hr 05/16/21 18:30 05/16/21 18:48 05/16/21 19:00 Temperature Pulse Rate 102 H 98 H 97 H Pulse Rate [Orthostatic Lying] Pulse Rate [Orthostatic Sitting] Pulse Rate [Orthostatic Standing] Respiratory Rate 22 20 15 Blood Pressure 149/89 H 142/92 H Blood Pressure [Orthostatic Lying] Blood Pressure [Orthostatic Sitting] Blood Pressure [Orthostatic Standing] Pulse Oximetry 99 97 96 05/16/21 19:30 05/16/21 20:06 05/16/21 20:30 Temperature Pulse Rate 97 H 99 H 108 H Pulse Rate [Orthostatic Lying] Pulse Rate [Orthostatic Sitting] Pulse Rate [Orthostatic Standing] Respiratory Rate 19 Blood Pressure 140/94 H 153/104 H 149/104 H Blood Pressure [Orthostatic Lying] Blood Pressure [Orthostatic Sitting] Blood Pressure [Orthostatic Standing] Pulse Oximetry 95 95 05/16/21 21:11 05/16/21 21:38 05/16/21 21:53 Temperature Pulse Rate 105 H 115 H Pulse Rate [Orthostatic Lying] Pulse Rate [Orthostatic Sitting] Pulse Rate [Orthostatic Standing] Respiratory Rate 24 19 19 Blood Pressure 138/94 H Blood Pressure [Orthostatic Lying] Blood Pressure [Orthostatic Sitting] Blood Pressure [Orthostatic Standing] Pulse Oximetry 98 92 93 05/16/21 21:55 05/16/21 21:57 05/16/21 22:00 Temperature 98.3 F Pulse Rate 128 H 85 Pulse Rate [Orthostatic Lying] 94 H Pulse Rate [Orthostatic Sitting] 122 H Pulse Rate [Orthostatic Standing] 150 H Respiratory Rate 25 H Blood Pressure 170/85 H Blood Pressure [Orthostatic Lying] 139/97 H Blood Pressure [Orthostatic Sitting] 136/91 H Blood Pressure [Orthostatic Standing] 170/85 H Pulse Oximetry 05/16/21 22:30 05/16/21 22:45 05/16/21 23:10 Temperature Pulse Rate 81 105 H 65 Pulse Rate [Orthostatic Lying] Pulse Rate [Orthostatic Sitting] Pulse Rate [Orthostatic Standing] Respiratory Rate 25 H 32 H Blood Pressure 152/95 H Blood Pressure [Orthostatic Lying] Blood Pressure [Orthostatic Sitting] Blood Pressure [Orthostatic Standing] Pulse Oximetry 92 91 05/16/21 23:30 05/17/21 00:00 05/17/21 00:30 Temperature Pulse Rate 92 H 100 H 92 H Pulse Rate [Orthostatic Lying] Pulse Rate [Orthostatic Sitting] Pulse Rate [Orthostatic Standing] Respiratory Rate Blood Pressure Blood Pressure [Orthostatic Lying] Blood Pressure [Orthostatic Sitting] Blood Pressure [Orthostatic Standing] Pulse Oximetry 99 100 91 05/17/21 01:00 05/17/21 01:30 05/17/21 01:38 Temperature Pulse Rate 83 105 H 102 H Pulse Rate [Orthostatic Lying] Pulse Rate [Orthostatic Sitting] Pulse Rate [Orthostatic Standing] Respiratory Rate Blood Pressure 130/88 Blood Pressure [Orthostatic Lying] Blood Pressure [Orthostatic Sitting] Blood Pressure [Orthostatic Standing] Pulse Oximetry 98 98 100 05/17/21 01:39 05/17/21 01:40 05/17/21 01:41 Temperature 98.6 F Pulse Rate 106 H 123 H Pulse Rate [Orthostatic Lying] 126 H Pulse Rate [Orthostatic Sitting] 117 H Pulse Rate [Orthostatic Standing] 94 H Respiratory Rate Blood Pressure 129/84 134/80 Blood Pressure [Orthostatic Lying] 134/80 Blood Pressure [Orthostatic Sitting] 129/84 Blood Pressure [Orthostatic Standing] 130/88 Pulse Oximetry 99 100 MDM - SOB/Dyspnea Lab Data Result diagrams: 05/16/21 22:31 05/16/21 22:31 Labs: Lab Results 05/16/21 05/16/21 05/16/21 Range/Units 18:21 18:21 18:21 WBC 9.1 (4.5-11.0) X10^3/uL RBC 4.80 (4.0-5.2) X10^6/uL Hgb 13.7 (12.0-16.0) g/dL Hct 40.4 (36-46) % MCV 84.3 (80-100) fL MCH 28.7 (26-34) PG MCHC 34.0 (30-36) % RDW 14.3 (11.6-14.8) % Plt Count 329 (150-400) X10^3/uL Neut % (Auto) 62.9 (50-75) % Lymph % (Auto) 29.4 (25-40) % [place] % (Auto) 6.6 (3-14) % Eos % (Auto) 0.5 L (2-4) % Baso % (Auto) 0.6 (0-2) % Neut # (Auto) 5700 (7345-9976) /uL Lymph # (Auto) 2700 (7433-5520) /uL [place] # (Auto) 600 (0-900) /uL Eos # (Auto) 0 (0-450) /uL Baso # (Auto) 100 (0-100) /uL PT 11.4 (10.1-12.7) SECONDS INR 1.0 (0.9-1.3) D-Dimer < 200 (<230) ng/mL Sodium 134 L (137-145) mmol/L Potassium 3.2 L (3.4-5.1) mmol/L Chloride 97 L (98-107) mmol/L Carbon Dioxide 25 (22-32) mmol/L BUN 16 (7-17) mg/dL Creatinine 0.78 (0.52-1.04) mg/dL Estimated GFR > 60.0 (>60) mL/min BUN/Creatinine Ratio 20.5 (6-22) Glucose 111 H (70-100) mg/dL Calcium 10.2 (8.4-10.2) mg/dL Total Bilirubin 0.7 (0.2-1.3) mg/dL AST 23 (14-36) IU/L ALT 17 (<35) IU/L Alkaline Phosphatase 93 (38-126) U/L Total Creatine Kinase 132 (30-135) U/L CK-MB (CK-2) 2.01 (<2.37) ng/mL CK-MB (CK-2) Rel Index 1.5 (1.5-5.0) % Troponin I < 0.012 (0.01-0.034) ng/mL NT-Pro-B Natriuret Pep 211 H (<125) pg/mL Total Protein 8.3 H (6.3-8.2) g/dL Albumin 5.1 H (3.5-5.0) g/dL Globulin 3.2 (1.7-4.1) g/dL Albumin/Globulin Ratio 1.6 (1.0-2.8) Lipase 43 (23-300) U/L Procalcitonin 0.06 (<0.5) ng/mL SARS-CoV-2 (PCR) (Negative) 05/16/21 05/16/21 05/16/21 Range/Units 18:21 21:11 22:31 WBC 6.7 (4.5-11.0) X10^3/uL RBC 4.86 (4.0-5.2) X10^6/uL Hgb 13.8 (12.0-16.0) g/dL Hct 40.8 (36-46) % MCV 84.0 (80-100) fL MCH 28.5 (26-34) PG MCHC 33.9 (30-36) % RDW 14.4 (11.6-14.8) % Plt Count 306 (150-400) X10^3/uL Neut % (Auto) 64.6 (50-75) % Lymph % (Auto) 29.1 (25-40) % [place] % (Auto) 5.3 (3-14) % Eos % (Auto) 0.3 L (2-4) % Baso % (Auto) 0.7 (0-2) % Neut # (Auto) 4300 (1296-8891) /uL Lymph # (Auto) 1900 (8133-0849) /uL [place] # (Auto) 400 (0-900) /uL Eos # (Auto) 0 (0-450) /uL Baso # (Auto) 0 (0-100) /uL PT (10.1-12.7) SECONDS INR (0.9-1.3) D-Dimer (<230) ng/mL Sodium (137-145) mmol/L Potassium (3.4-5.1) mmol/L Chloride (98-107) mmol/L Carbon Dioxide (22-32) mmol/L BUN (7-17) mg/dL Creatinine (0.52-1.04) mg/dL Estimated GFR (>60) mL/min BUN/Creatinine Ratio (6-22) Glucose (70-100) mg/dL Calcium (8.4-10.2) mg/dL Total Bilirubin (0.2-1.3) mg/dL AST (14-36) IU/L ALT (<35) IU/L Alkaline Phosphatase (38-126) U/L Total Creatine Kinase (30-135) U/L CK-MB (CK-2) (<2.37) ng/mL CK-MB (CK-2) Rel Index (1.5-5.0) % Troponin I < 0.012 (0.01-0.034) ng/mL NT-Pro-B Natriuret Pep (<125) pg/mL Total Protein (6.3-8.2) g/dL Albumin (3.5-5.0) g/dL Globulin (1.7-4.1) g/dL Albumin/Globulin Ratio (1.0-2.8) Lipase (23-300) U/L Procalcitonin (<0.5) ng/mL SARS-CoV-2 (PCR) Negative (Negative) 05/16/21 Range/Units 22:31 WBC (4.5-11.0) X10^3/uL RBC (4.0-5.2) X10^6/uL Hgb (12.0-16.0) g/dL Hct (36-46) % MCV (80-100) fL MCH (26-34) PG MCHC (30-36) % RDW (11.6-14.8) % Plt Count (150-400) X10^3/uL Neut % (Auto) (50-75) % Lymph % (Auto) (25-40) % [place] % (Auto) (3-14) % Eos % (Auto) (2-4) % Baso % (Auto) (0-2) % Neut # (Auto) (0785-7795) /uL Lymph # (Auto) (0867-8307) /uL [place] # (Auto) (0-900) /uL Eos # (Auto) (0-450) /uL Baso # (Auto) (0-100) /uL PT (10.1-12.7) SECONDS INR (0.9-1.3) D-Dimer (<230) ng/mL Sodium 137 (137-145) mmol/L Potassium 3.9 (3.4-5.1) mmol/L Chloride 99 (98-107) mmol/L Carbon Dioxide 28 (22-32) mmol/L BUN 13 (7-17) mg/dL Creatinine 0.78 (0.52-1.04) mg/dL Estimated GFR > 60.0 (>60) mL/min BUN/Creatinine Ratio 16.7 (6-22) Glucose 105 H (70-100) mg/dL Calcium 10.5 H (8.4-10.2) mg/dL Total Bilirubin (0.2-1.3) mg/dL AST (14-36) IU/L ALT (<35) IU/L Alkaline Phosphatase (38-126) U/L Total Creatine Kinase 125 (30-135) U/L CK-MB (CK-2) 1.83 (<2.37) ng/mL CK-MB (CK-2) Rel Index 1.5 (1.5-5.0) % Troponin I < 0.012 (0.01-0.034) ng/mL NT-Pro-B Natriuret Pep (<125) pg/mL Total Protein (6.3-8.2) g/dL Albumin (3.5-5.0) g/dL Globulin (1.7-4.1) g/dL Albumin/Globulin Ratio (1.0-2.8) Lipase (23-300) U/L Procalcitonin (<0.5) ng/mL SARS-CoV-2 (PCR) (Negative) Urine Dip Bedside Urine Glucose Negative Bedside Urine Bilirubin - Negative Bedside Urine Ketone +/- 5 Urine Specific [place] 1.010 Bedside Urine Occult Blood - Negative Bedside Urine pH 6.0 Bedside Urine Protein - Negative Bedside Urine Urobilinogen - Negative Bedside Urine Nitrite - Negative Bedside Urine Leukocytes - Negative Esterase Discharge Plan Departure Patient Disposition: Home Clinical Impression: Autonomic orthostatic hypotension Instructions: Edema Activity Restrictions/Additional Instructions: *You have been diagnosed with [peripheral edema and slightly low potassium, otherwise very reassuring history, exam, labs and chest xray] *What to do: *Please continue to take your regular medications as directed. Earlier I had accidentally sent a prescription of Lasix. PLEASE DO NOT FILL THIS OR TAKE THIS [x ] New medication prescriptions sent to your pharmacy: [ [facility]] [ ] New medication written as a paper prescription [ ] No new medications given *Please follow up with your primary care provider in 2-3 days, call for an appointment. Let them know you were seen in the Emergency Department and that we ask that you be seen in follow up. We will electronically transmit a record of today's note if your PCP is in our system * even though you are feeling much better, as we discussed, I do not think is soto to get on a cross[place]country flight tomorrow. I would strongly suggest you see if you can not delay it by few days to make sure that your feeling well enough to travel *If you do not have a primary care provider please contact the [facility] Resource line at [phone]. They will ask some questions about your medical history and help get you set up with a doctor in the community. *Return to Emergency Department if you should have any new, worsening or concerning symptoms, such as [fever greater than 101 F, shaking chills, worsening pain, persistent vomiting or other bothersome symptoms] Prescriptions: New furosemide [Lasix] 40 mg tablet 40 mg PO DAILY Qty: 5 RF: 0 potassium chloride 20 mEq tablet extended release 20 meq PO BID Qty: 14 RF: 0 No Action ondansetron 4 mg tablet,disintegrating 4 mg PO BID PRN (Reason: nausea and vomiting) Qty: 14 RF: 0 Qvar RediHaler 40 mcg/actuation HFA aerosol breath activated 1 inhalation INHALATION Q12H Qty: 10.6 RF: 0 propranolol 10 mg tablet 10 mg PO BID Qty: 60 RF: 0 cyclobenzaprine 10 mg tablet 10 mg PO TID PRN (Reason: muscle spasm) Qty: 14 RF: 0 lidocaine 5 % adhesive patch,medicated 1 patch TOP DAILY Qty: 1 RF: 0 cyclobenzaprine 10 mg tablet 10 mg PO TID PRN (Reason: muscle spasm) Qty: 14 RF: 0 beclomethasone dipropionate 40 mcg/actuation HFA aerosol breath activated 2 inh inhalation BID Qty: 10.6 RF: 0
[2021-05-16 18:35] LABS: Add Manual Diff / Slide Review NO; Basophils Absolute Auto 100 /uL (0-100); Basophils Percent Auto 0.6 % (0-2); Eosinophils Absolute Auto 0 /uL (0-450); Eosinophils Percent Auto 0.5 % (2-4); Hematocrit 40.4 % (36-46); Hemoglobin 13.7 g/dL (12.0-16.0); Lymphocytes Absolute Auto 2700 /uL (1100-4500); Lymphocytes Percent Auto 29.4 % (25-40); Mean Corpuscular Hemoglobin 28.7 PG (26-34); Mean Corpuscular Volume 84.3 fL (80-100); Monocytes Absolute Auto 600 /uL (0-900); Monocytes Percent Auto 6.6 % (3-14); Neutrophils Absolute Auto 5700 /uL (1500-7000); Neutrophils Percent Auto 62.9 % (50-75); Platelet Count 329 X10^3/uL (150-400); Red Cell Distribution Width 14.3 % (11.6-14.8); White Blood Cell Count 9.1 X10^3/uL (4.5-11.0)
--- NOTE | 2021-05-16 18:39 | PC.NURSE ---
pt states she had covid about 3 weeks. pt states she has been having generalized swelling anytime she stands up.
[2021-05-16 18:51] LABS: Albumin 5.1 g/dL (3.5-5.0); Albumin Globulin Ratio 1.6 (1.0-2.8); Alkaline Phosphatase 93 U/L (38-126); Aspartate Aminotransferase 23 IU/L (14-36); BUN Creatinine Ratio 20.5 (6-22); Bilirubin Total 0.7 mg/dL (0.2-1.3); Blood Urea Nitrogen 16 mg/dL (7-17); COVID19 -Nasal RAPID Negative (Negative); Calcium 10.2 mg/dL (8.4-10.2); Carbon Dioxide 25 mmol/L (22-32); Chloride 97 mmol/L (98-107); Creatine Kinase 132 U/L (30-135); Estimated Glomerular Filt Rate > 60.0 mL/min (>60); Globulin 3.2 g/dL (1.7-4.1); Glucose 111 mg/dL (70-100); Sodium 134 mmol/L (137-145); Total Protein 8.3 g/dL (6.3-8.2)
[2021-05-16 18:54] LABS: Prothrombin Time 11.4 SECONDS (10.1-12.7)
[2021-05-16 18:58] LABS: D Dimer < 200 ng/mL (<230)
[2021-05-16 19:03] LABS: NT-proBNP (BNP-Adult 18+) 211 pg/mL (<125); Troponin I < 0.012 ng/mL (0.01-0.034)
[2021-05-16 19:08] LABS: Procalcitonin 0.06 ng/mL (<0.5)
[2021-05-16 19:09] LABS: Alanine Aminotransferase 17 IU/L (<35); HEMOLYSIS < 15 (0-50); Lipase 43 U/L (23-300); Potassium 3.2 mmol/L (3.4-5.1)
[2021-05-16 19:18] LABS: CKMB % Relative Index 1.5 % (1.5-5.0); Creatine Kinase MB 2.01 ng/mL (<2.37)
[2021-05-16] MEDS: POTASSIUM CHLORIDE 20 MEQ/15 ML UDC 40 MEQ PO (19:57)
[2021-05-16] MEDS: FUROSEMIDE 40 MG/4 ML VIAL IV (20:46)
[2021-05-16 21:46] LABS: Troponin I < 0.012 ng/mL (0.01-0.034)
--- NOTE | 2021-05-16 21:58 | PC.NURSE ---
Orthostatic blood pressures done. Pt reported dizziness/chest heaviness with standing. Dr Infante aware.
[2021-05-16] MEDS: LACTATED RINGERS 1,000 ML 1000 ML IV (22:07)
[2021-05-16] MEDS: ONDANSETRON 4 MG/2 ML INJ IV (22:15)
--- NOTE | 2021-05-16 22:46 | DI.CT.S_ITS ---
PROCEDURE: CT ANGIO CHEST ABDOMEN PELVIS INDICATIONS: tachycardia, breathless, restless TECHNIQUE: Precontrast 5 mm thick sections acquired from the lung apices to the iliac crests. After the administration of intravenous contrast, 2.5 mm thick sections again acquired from the lung apices to the iliac crests. Maximum intensity projection (MIP) oblique sagittal and coronal reformats were then acquired. For radiation dose reduction, the following was used: automated exposure control. COMPARISON: [facility], CR, XR CHEST 1V, 05/16/2021, 18:35. FINDINGS: Image quality: Excellent. AORTA: Thoracoabdominal aorta is within normal limits. No dissection, aneurysm, or significant stenosis. CHEST: Lungs and pleura: No acute airspace opacities. No pleural effusions or pneumothorax. Central and peripheral airways are patent and normal in caliber. Mediastinum: Heart size is normal. No pericardial effusion. No mediastinal or hilar adenopathy by size criteria. Central pulmonary arteries are normal in size. Esophagus is normal in caliber. No hiatal hernias. Bones and chest wall: No axillary adenopathy by size criteria. Thyroid gland is grossly unremarkable . No suspicious bony lesions. No vertebral body compression fractures. Bilateral breast implants. ABDOMEN: Vasculature: Celiac trunk and mesenteric arteries are patent. Renal arteries are also patent. Solid organs: Liver is normal in size and enhancement. Gallbladder is within normal limits . Biliary system is non dilated. Pancreas enhances normally. Spleen is normal in size and enhancement. No adrenal nodules. Both kidneys are normal in size and enhancement, without hydronephrosis. Peritoneum and bowel: No free fluid or air. Bowel loops are normal in caliber and wall thickness. Nodes and vessels: No retroperitoneal or mesenteric adenopathy by size criteria. Inferior vena cava is normal in morphology. Miscellaneous: No ventral hernias. PELVIS: Genitourinary: Bladder wall thickness is normal. Intrauterine device is present. Miscellaneous: No inguinal hernias or adenopathy. No ventral hernias. Bones: No suspicious bony lesions. No vertebral body compression fractures. IMPRESSION: 1. Negative evaluation of the aorta. 2. No acute process. Dictated by: Arturo Rodriguez M.D. on 05/16/2021 at 23:23 Approved by: Arturo Rodriguez M.D. on 05/16/2021 at 23:26
[2021-05-16 22:50] LABS: Add Manual Diff / Slide Review NO; Basophils Absolute Auto 0 /uL (0-100); Basophils Percent Auto 0.7 % (0-2); Eosinophils Absolute Auto 0 /uL (0-450); Eosinophils Percent Auto 0.3 % (2-4); Hematocrit 40.8 % (36-46); Hemoglobin 13.8 g/dL (12.0-16.0); Lymphocytes Absolute Auto 1900 /uL (1100-4500); Lymphocytes Percent Auto 29.1 % (25-40); Mean Corpuscular HGB Conc 33.9 % (30-36); Mean Corpuscular Hemoglobin 28.5 PG (26-34); Monocytes Absolute Auto 400 /uL (0-900); Monocytes Percent Auto 5.3 % (3-14); Neutrophils Absolute Auto 4300 /uL (1500-7000); Neutrophils Percent Auto 64.6 % (50-75); Platelet Count 306 X10^3/uL (150-400); Red Blood Cell Count 4.86 X10^6/uL (4.0-5.2); Red Cell Distribution Width 14.4 % (11.6-14.8); White Blood Cell Count 6.7 X10^3/uL (4.5-11.0)
[2021-05-16 23:00] LABS: BUN Creatinine Ratio 16.7 (6-22); Blood Urea Nitrogen 13 mg/dL (7-17); Calcium 10.5 mg/dL (8.4-10.2); Carbon Dioxide 28 mmol/L (22-32); Chloride 99 mmol/L (98-107); Creatine Kinase 125 U/L (30-135); Estimated Glomerular Filt Rate > 60.0 mL/min (>60); Glucose 105 mg/dL (70-100); HEMOLYSIS < 15 (0-50); Potassium 3.9 mmol/L (3.4-5.1); Sodium 137 mmol/L (137-145)
[2021-05-16] MEDS: LORazepam 2 MG/ML INJ 1 MG IV (23:03)
[2021-05-16 23:11] LABS: Troponin I < 0.012 ng/mL (0.01-0.034)
[2021-05-16 23:15] LABS: CKMB % Relative Index 1.5 % (1.5-5.0); Creatine Kinase MB 1.83 ng/mL (<2.37)
[2021-05-17] VITALS (8 sets, daily range): BP systolic 129–134; BP diastolic 80–88; PULSE 83–126; TEMP 37; O2SAT 91–100
[2021-05-17] MEDS: LACTATED RINGERS 1,000 ML 1000 ML IV (00:16)
== END 2021-05-17 02:23 | disposition home or self-care (01) ==
PROVIDERS: Emergency Provider Emergency Medicine
DX: I95.1 Orthostatic hypotension (principal); R60.0 Localized edema; E87.6 Hypokalemia; Z20.822 Contact with and (suspected) exposure to COVID-19
CPT/HCPCS: 36415; 71045; 71275; 74174; 80048; 80053; 81003; 82550; 82553; 83690; 83880; 84145; 84484; 85025; 85379; 85610; 87635; 93005; 96361; 96374; 96375; 99285; C9803; J1940; J2060; J2405; Q9967